=== PATIENT | female | born 1980 | race Caucasian/White ===

== ENCOUNTER → 2020-01-15 12:16 | Outpatient (BNVA) | payer MEDICARE, MEDICAID, SELFPAY | PROVIDERS: Family Provider Family Medicine; PCP Family Medicine; Visit Provider Psychiatry & Neurology Psychiatry | DX: F33.2 Major depressive disorder, recurrent severe without psychotic features (principal); F43.12 Post-traumatic stress disorder, chronic | CPT/HCPCS: 99213 ==

== ENCOUNTER → 2020-02-19 15:48 | Outpatient (BNVA) | payer MEDICARE, MEDICAID, SELFPAY | PROVIDERS: Family Provider Family Medicine; PCP Family Medicine; Visit Provider Social Worker | DX: F43.12 Post-traumatic stress disorder, chronic (principal); F33.2 Major depressive disorder, recurrent severe without psychotic features | CPT/HCPCS: 90834 ==

== ENCOUNTER → 2020-04-05 07:44 | Outpatient (BNVA) | payer MEDICARE, MEDICAID, SELFPAY | PROVIDERS: Family Provider Family Medicine; PCP Family Medicine; Visit Provider Psychiatry & Neurology Psychiatry | DX: F43.12 Post-traumatic stress disorder, chronic (principal); F33.2 Major depressive disorder, recurrent severe without psychotic features | CPT/HCPCS: 99214 ==

== ENCOUNTER 2020-05-25 09:36 | Emergency (ER) | payer MEDICARE, MEDICAID, SELFPAY ==
[2020-05-25] VITALS (8 sets, daily range): BP systolic 130–163; BP diastolic 87–128; PULSE 80–153; RESP 12–19; TEMP 36.8; O2SAT 94–99; BMI 59.7
--- NOTE | 2020-05-25 10:01 | CTR_ITS ---
PROCEDURE INFORMATION: Exam: CT Abdomen And Pelvis With Contrast Exam date and time: 05/25/2020 10:58 AM Age: 39 years old Clinical indication: Abdominal pain; Localized; Left upper quadrant (luq); Prior surgery; Surgery date: 6+ months; Surgery type: Gb, exlap; Patient HX: C/O luq pain w n/v/d; Additional info: Abd pain TECHNIQUE: Imaging protocol: Computed tomography of the abdomen and pelvis with intravenous contrast. Radiation optimization: All CT scans at this facility use at least one of these dose optimization techniques: automated exposure control; mA and/or kV adjustment per patient size (includes targeted exams where dose is matched to clinical indication); or iterative reconstruction. Contrast material: OMNI 300; Contrast volume: 95 ml; Contrast route: INTRAVENOUS (IV); COMPARISON: CT abdomen pelvis w con* [id number] 05/30/2018 9:31 PM RADIATION DOSE METRICS: Total DLP (mGy-cm): 1974.32 FINDINGS: Liver: Normal. No mass. Gallbladder and bile ducts: Stable cholecystectomy. Pancreas: Normal. No ductal dilation. Spleen: Normal. No splenomegaly. Adrenals: Normal. No mass. 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 Stomach and bowel: Unremarkable. No obstruction. No mucosal thickening. Appendix: Normal appendix. Intraperitoneal space: Unremarkable. No free air. No significant fluid collection. Vasculature: Unremarkable. No abdominal aortic aneurysm. Lymph nodes: Unremarkable. No enlarged lymph nodes. Bladder: Unremarkable as visualized. Reproductive: Unremarkable as visualized. Bones/joints: Mild to moderate multilevel spine degenerative changes including degenerative disc disease, spondylosis and facet degenerative changes. Mild dextroscoliosis. Soft tissues: Probable stable morbid obesity. CT/CT abdomen pelvis w con* [id number] IMPRESSION: No acute findings. Radiation Dose CTDIVOL = (mGy): DLP = 1974.32 (mGy-cm)
--- NOTE | 2020-05-25 10:02 | ED_ITS ---
HPI - Abdominal Pain General: Chief Complaint: Abdominal Pain Stated Complaint: FALL THIS AM Time Seen by Provider: 05/25/20 09:44 History of Present Illness: HPI narrative: 39-year-old female comes in complaining of nausea vomiting and diarrhea for the last week. She states this morning she got very dizzy after urinating lightheaded and actually fell has some right-sided pain although initially her pain seemed to begin on the left side prior to that the right-sided discomfort was a result of the fall. She denies any dysuria urgency or frequency no GI blood loss no hematochezia melena hematemesis or coffee-ground emesis she not had a fever at all at home. She is taken Dexilant ondansetron and Reglan at home for the nausea none of which is seem to have helped. She relates the onset of this to shortly after she had a radiofrequency ablation in [place]. She has not followed up through the office who did the radiofrequency ablation as she has not been able to contact them today on the weekend. She has not had any rash she is not had any open or draining areas in her back. She has had a little bit of a nonproductive cough she has no history of any chronic respiratory problems. She is still having some dry heaves while she is here in the emergency room which is not actually brought anything up. MD elicited complaint: abdominal pain Pertinent past history: other (Patient relates onset after being in [place] for radiofrequency ablation on her back, she also has a dry nonproductive cough.) Onset (ago): week(s) (1) Pain Consistency: intermittent Location: LUQ Severity: moderate Quality: cramping Exacerbating factors: eating and vomiting Relieving factors: nothing Context: recent surgery/procedure (Radiofrequency ablation ) Associated Symptoms: Reports anorexia, bloating, change in bowel habits, change in stool character, chills, GI cramping, diarrhea, dyspepsia, nausea and poor appetite; Denies coffee ground emesis, constipation, dysuria, fever(s), heartburn, hematochezia, hematuria, hematemesis, fecal incontinence, loose stools, melena, syncope and vomiting Treatments prior to arrival: other (Dexilant Zofran and Reglan) Related Data: Date of Last Menstrual Period: 02/21/20 Review of Systems Const: Reports: chills; Denies: fever(s) ENMT: Denies: throat pain, ear or mastoid pain, nasal discharge or nasal congestion Card: Denies: syncope Resp: Denies: dyspnea, productive cough or non-productive cough GI: Reports: nausea, diarrhea, bloating, GI cramping, change in bowel habits and change in stool character; Denies: vomiting, hematemesis, coffee ground emesis, heartburn, constipation, fecal incontinence, hematochezia or melena : Denies: dysuria or hematuria Skin/Breast: Denies: rash or pruritus PFSH ED PFSH: Medical History (Updated 05/25/20 @ 13:22 by Jakob Wen DO) Diabetes Hypertension Surgical History (Updated 05/25/20 @ 10:06 by Jakob Wen DO) History of cholecystectomy History of knee surgery History of tonsillectomy Social History Smoking and tobacco status: never smoked Female Reproductive History: Date of last menstrual period: 02/21/20 Physical Exam Const: COMMON NORMALS: no acute distress GENERAL APPEARANCE: cooperative and comfortable ORIENTATION/CONSCIOUSNESS: Yes awake, Yes oriented to person, Yes oriented to place and Yes oriented to time HENMT: COMMON NORMALS: normocephalic, atraumatic, hearing grossly normal bilaterally, external ears normal, EAC's normal, TM's normal bilaterally, Normal nasal mucous membranes and turbinates present, moist oral mucous membranes and oropharynx normal HEAD & SCALP: normocephalic and atraumatic NOSE: Normal nasal mucous membranes and turbinates present EXTERNAL EAR: Yes external ears normal EXTERNAL AUDITORY CANAL: EAC's normal TYMPANIC MEMBRANE: TM's normal bilaterally Eye: COMMON NORMALS: Equal, round and reactive pupils present, EOMs intact bilaterally, conjunctivae normal and no scleral icterus CONJUNCTIVA: Yes conjunctivae normal PUPIL: Yes Equal, round and reactive pupils present Neck/C-Spine: COMMON NORMALS: full ROM, no lymphadenopathy, supple and no JVD Lymph: LYMPHATIC: no lymphadenopathy noted and no lymphedema noted Resp: COMMON NORMALS: normal respiratory effort, No retractions, No use of accessory muscles and clear to auscultation bilaterally AUSCULTATION: clear to auscultation bilaterally Cardio: COMMON NORMALS: no JVD, regular rate, regular rhythm and No murmurs present (Cardio) RATE: regular rate RHYTHM: regular rhythm GI: COMMON NORMALS: Soft to palpation and No hepatosplenomegaly present INSPECTION: No Fluid wave present AUSCULTATION: Yes Absent bowel sounds PALPATION: Yes Soft to palpation, Yes Tenderness to palpation present (GI) (Generalized.), No Guarding due to palpation present (GI) and Yes No hepatosplenomegaly present PERCUSSION: normal to percussion and no fluid wave Extremity: COMMON NORMALS: normal to inspection, capillary refill normal, no clubbing, cyanosis or edema, no calf tenderness and no pedal edema Neuro: SENSORIUM/ORIENTATION: Yes oriented to person, Yes oriented to place and Yes oriented to time Skin: COMMON NORMALS: no rashes or lesions noted GENERAL SKIN EXAM: no rashes or lesions noted Course Vital Signs: Vital signs: Vital Signs Temperature 98.2 F 05/25/20 09:41 Pulse Rate 84 05/25/20 13:29 Respiratory Rate 16 05/25/20 13:29 Blood Pressure 138/106 05/25/20 13:29 Pulse Oximetry 98 05/25/20 13:29 MDM - Abdominal Pain MDM Narrative: Medical decision making narrative: Patient is feeling much better after fluids. Nausea is improved she is not any more episodes of diarrhea. We will go ahead and discharge her home remainder the work-up was unremarkable she does have significantly elevated blood sugar and should follow- up with her PCP for that. Give her Zofran and promethazine hydrocodone for pain if she has any worsening problems return recommend follow-up with her primary care doctor within the next 5 to 7 days on her blood sugar. May be elevated due to the stress of the illness but needs appropriate follow-up. Lab Data: Labs: Lab Results 05/25/20 05/25/20 05/25/20 Range/Units 10:03 10:20 10:20 WBC 10.0 (4.0-10.0) 10^3/ uL RBC 5.73 H (4.1-5.3) 10^6/u L Hgb 14.9 (11.5-15.3) g/dL Hct 49.6 H (37.0-47.0) % MCV 86.6 (81-99) fL MCH 26.0 L (28.0-34.0) pg MCHC 30.0 (30.0-36.0) g/dL RDW 14.6 (12.1-15.1) % Plt Count 279 (130-400) 10^3/c mm MPV 11.8 H (7.4-10.4) fL Neut % (Auto) 59.3 % Lymph % (Auto) 32.0 % [place] % (Auto) 3.9 % Eos % (Auto) 3.8 % Baso % (Auto) 0.6 % Neut # (Auto) 5.90 (1.8-7.7) 10^3/u L Lymph # (Auto) 3.2 (0.8-4.8) 10^3/u L [place] # (Auto) 0.4 (0.2-0.9) 10^3/u L Eos # (Auto) 0.4 (0.0-0.8) 10^3/u L Baso # (Auto) 0.1 (0.0-0.1) 10^3/u L Nucleated RBC % (a uto) 0 % Nucleated RBCs # 0.0 /100WBC Sodium (136-145) mmol/L Potassium (3.5-5.1) mmol/L Chloride (98-107) mmol/L Carbon Dioxide (22-29) mmol/L Anion Gap (5-19) BUN (6-20) mg/dL Creatinine (0.5-0.9) mg/dL GFR Calculation (90-130) mL/min Glucose (65-115) mg/dL Calculated Osmolal ity (285-295) mOsm/k g Lactic Acid 2.1 (0.5-2.2) mmol/L Calcium (8.5-10.5) mg/dL Total Bilirubin (0.15-1.2) mg/dL AST (0-32) U/L ALT (0-33) U/L Alkaline Phosphata se (35-105) IU/L Total Protein (6.6-8.7) g/dL Albumin (3.5-5.2) g/dL Globulin (1.3-4.6) g/dL Lipase (13-60) U/L Urine Color Yellow (Yellow) Urine Appearance Cloudy (CLEAR) Urine pH 5 (5-7) Ur Specific Gravit y 1.025 (1.005-1.030) Urine Protein Trace (Negative) Urine Glucose (UA) 4+ H (Normal) Urine Ketones 1+ H (Negative) Urine Blood Neg (Negative) Urine Nitrate Negative (Negative) Urine Bilirubin Neg (NEGATIVE) Urine Urobilinogen 1 H (Negative) mg/dL Ur Leukocyte María ase Negative (Negative) Urine RBC None (0-2) /hpf Urine WBC None (0-5) /hpf Ur Squamous Epith Cells 0-4 H (0-5) Amorphous Sediment 3+ Urine Bacteria Trace (NONE) Serum Ketones (Negative) 05/25/20 05/25/20 Range/Units 10:20 10:20 WBC (4.0-10.0) 10^3/ uL RBC (4.1-5.3) 10^6/u L Hgb (11.5-15.3) g/dL Hct (37.0-47.0) % MCV (81-99) fL MCH (28.0-34.0) pg MCHC (30.0-36.0) g/dL RDW (12.1-15.1) % Plt Count (130-400) 10^3/c mm MPV (7.4-10.4) fL Neut % (Auto) % Lymph % (Auto) % [place] % (Auto) % Eos % (Auto) % Baso % (Auto) % Neut # (Auto) (1.8-7.7) 10^3/u L Lymph # (Auto) (0.8-4.8) 10^3/u L [place] # (Auto) (0.2-0.9) 10^3/u L Eos # (Auto) (0.0-0.8) 10^3/u L Baso # (Auto) (0.0-0.1) 10^3/u L Nucleated RBC % (a uto) % Nucleated RBCs # /100WBC Sodium 135 L (136-145) mmol/L Potassium 4.1 (3.5-5.1) mmol/L Chloride 100 (98-107) mmol/L Carbon Dioxide 21 L (22-29) mmol/L Anion Gap 18.1 (5-19) BUN 12 (6-20) mg/dL Creatinine 0.8 (0.5-0.9) mg/dL GFR Calculation 80.7 L (90-130) mL/min Glucose 256 H (65-115) mg/dL Calculated Osmolal ity 285 (285-295) mOsm/k g Lactic Acid (0.5-2.2) mmol/L Calcium 9.1 (8.5-10.5) mg/dL Total Bilirubin 0.4 (0.15-1.2) mg/dL AST 31 (0-32) U/L ALT 25 (0-33) U/L Alkaline Phosphata se 103 (35-105) IU/L Total Protein 7.8 (6.6-8.7) g/dL Albumin 4.4 (3.5-5.2) g/dL Globulin 3.4 (1.3-4.6) g/dL Lipase 18 (13-60) U/L Urine Color (Yellow) Urine Appearance (CLEAR) Urine pH (5-7) Ur Specific Gravit y (1.005-1.030) Urine Protein (Negative) Urine Glucose (UA) (Normal) Urine Ketones (Negative) Urine Blood (Negative) Urine Nitrate (Negative) Urine Bilirubin (NEGATIVE) Urine Urobilinogen (Negative) mg/dL Ur Leukocyte María ase (Negative) Urine RBC (0-2) /hpf Urine WBC (0-5) /hpf Ur Squamous Epith Cells (0-5) Amorphous Sediment Urine Bacteria (NONE) Serum Ketones Negative (Negative) Discharge Plan Discharge Patient Disposition: Home, Self-Care Clinical Impression: Abdominal pain, Gastroenteritis Condition: Stable Prescriptions: New Zofran 4 mg tablet 4 mg PO Q6H PRN (Reason: nausea and vomiting) Qty: 20 RF: 0 hydrocodone-acetaminophen 5-325 mg tablet 1 tab PO Q6H PRN (Reason: pain) Qty: 14 RF: 0 promethazine 25 mg suppository 25 mg NM Q6H PRN (Reason: nausea and vomiting) Qty: 12 RF: 1 No Action metoprolol tartrate 50 mg tablet 50 mg PO BID RF: 0 lisinopril 10 mg tablet 10 mg PO DAILY RF: 0 diphenhydramine HCl [Benadryl] 25 mg capsule 25 mg PO DAILY PRN (Reason: Allergy Symptoms) RF: 0 lamotrigine [Lamictal] 150 mg tablet 150 mg PO DAILY Qty: 30 RF: 2 hydroxyzine HCl 50 mg tablet 50 mg PO QID PRN (Reason: anxiety) Qty: 120 RF: 2 fluticasone propionate 50 mcg/actuation spray,suspension 1 spray INTRANASAL BID Qty: 16 RF: 0 buspirone 5 mg tablet 5 mg PO TID PRN (Reason: Anxiety) RF: 0 trazodone 50 mg tablet 100 mg PO BEDTIME RF: 0 temazepam 30 mg Capsule 30 mg PO DAILY RF: 0 tizanidine 2 mg Capsule 2 mg PO BID PRN (Reason: Muscle Pain) RF: 0 Discharge Orders: Discharge Order (Routine); Ordered 05/25/20 Ordered By: Jakob Wen Referrals: Cass Henao MD [Primary Care Provider] - Discharge Diet: Clear Liquid Discharge Activity: Limit activity as instructed Patient Instructions: Abdominal Pain (ED) Activity Restrictions/Additional Instructions: Clear liquid diet for 24 to 48 hours. Pain nausea and vomiting medications also given to you. 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
[2020-05-25 10:24] LABS: Basophils # 0.1 10^3/uL (0.0-0.1); Basophils % 0.6 %; Eosinophils # 0.4 10^3/uL (0.0-0.8); Eosinophils % 3.8 %; Hematocrit 49.6 % (37.0-47.0); Hemoglobin 14.9 g/dL (11.5-15.3); Lymphocytes # 3.2 10^3/uL (0.8-4.8); Mean Corpuscular Volume 86.6 fL (81-99); Mean Platelet Volume 11.8 fL (7.4-10.4); Monocytes # 0.4 10^3/uL (0.2-0.9); Monocytes % 3.9 %; Neutrophils % 59.3 %; Nucleated Red Blood Cells % 0 %; Platelet Count 279 10^3/cmm (130-400); Red Blood Count 5.73 10^6/uL (4.1-5.3); Red Cell Distribution Width 14.6 % (12.1-15.1)
[2020-05-25 10:33] LABS: Ketone (Acetest) Serum Negative (Negative)
[2020-05-25] MEDS: sodium chloride 0.9% 1,000 ML 999 ML IV ×2 (10:33→11:23)
[2020-05-25] MEDS: ondansetron 2 mg/ML SDV 2 mL 4 MG IVP (10:33)
[2020-05-25 10:48] LABS: Alanine Aminotransferase 25 U/L (0-33); Albumin Level 4.4 g/dL (3.5-5.2); Alkaline Phosphatase 103 IU/L (35-105); Anion Gap 18.1 (5-19); Aspartate Amino Transferase 31 U/L (0-32); Blood Urea Nitrogen 12 mg/dL (6-20); Calcium 9.1 mg/dL (8.5-10.5); Carbon Dioxide 21 mmol/L (22-29); Chloride 100 mmol/L (98-107); Globulin 3.4 g/dL (1.3-4.6); Glomerular Filtration Rate 80.7 mL/min (90-130); Glucose 256 mg/dL (65-115); Lipase 18 U/L (13-60); Osmolality Calculated 285 mOsm/kg (285-295); Potassium 4.1 mmol/L (3.5-5.1); Sodium 135 mmol/L (136-145); Total Bilirubin 0.4 mg/dL (0.15-1.2); Total Protein 7.8 g/dL (6.6-8.7)
[2020-05-25 10:50] LABS: Lactic Sepsis W/Reflex 2.1 mmol/L (0.5-2.2)
[2020-05-25] MEDS: iohexol 300 mg/mL 100 mL Btl IV (11:10)
[2020-05-25] MEDS: morphine 4 mg/mL SDV 1 mL IVP (11:19)
--- NOTE | 2020-05-25 11:52 | PC.NURSE ---
Rounded on patient. Patient resting in be. No distress noted. Patient reports that she needs to use the restroom. patient assisted to the restroom at this time. Patient voided and ambulated back to room. Patient back in bed resting and hooked to the monitor. Will continue to monitor patient.
[2020-05-25 11:56] LABS: Add Urine Microscopic? YES; Bilirubin Urine Neg (NEGATIVE); Blood Urine Neg (Negative); Glucose Urine UA 4+ (Normal); Ketones Urine 1+ (Negative); Leukocyte Esterase Urine Negative (Negative); Nitrate Urine Negative (Negative); Protein Urine Trace (Negative); Specific Gravity, Urine 1.025 (1.005-1.030); Squamous Epithelial Cell Urine 0-4 (0-5); Urine Appearance Cloudy (CLEAR); Urine Color Yellow (Yellow); Urobilinogen Urine 1 mg/dL (Negative); pH Urine 5 (5-7)
[2020-05-25 11:57] LABS: Add Urine Culture? No; Amorphous Sediment Urine 3+; Bacteria Urine TRACE
[2020-05-25 12:23] LABS: Reflex Lactate Order REFLEX LACTIC ORDERD
== END 2020-05-25 13:29 | disposition home or self-care (01) ==
PROVIDERS: Emergency Provider Family Medicine; PCP Family Medicine
DX: K52.9 Noninfective gastroenteritis and colitis, unspecified (principal); E11.9 Type 2 diabetes mellitus without complications; I10 Essential (primary) hypertension
CPT/HCPCS: 12345; 74177; 80053; 81001; 81003; 82009; 83605; 83690; 85025; 96361; 96374; 96375; 99284; J2270; J2405; J7030; Q9967

== ENCOUNTER 2020-06-19 07:25 | Emergency (ER) | payer MEDICARE, MEDICAID, SELFPAY ==
[2020-06-19 07:30] VITALS: BMI 58.6
[2020-06-19 07:35] VITALS: BP 161/138; PULSE 98; RESP 18; TEMP 36.8; O2SAT 99
--- NOTE | 2020-06-19 08:40 | W.ED.FEMALGU ---
HPI - Female Genitourinary General: Chief complaint: Urogenital-Female Stated complaint: Blood in urine Time Seen by Provider: 06/19/20 07:33 History of Present Illness: HPI Narrative: 39-year-old morbidly obese female presents complaining of dysuria and urgency. She thought she had a yeast infection has used to 7-day [id number] treatments with no improvement. She has had some hematuria this morning she denies any flank pain although she does have some generalized abdominal pain she has been nauseous she vomited once 2 days ago there was no blood in vomitus no evidence of coffee-ground emesis. She denies any respiratory symptoms or being around anyone who is been tested positive for Kovic recently. MD elicited complaint: dysuria and UTI Pertinent past history: diabetes Onset (ago): day(s) Location of symptoms: external genitalia Severity: severe Female Urogenital Radiation: Non-Radiating Quality of pain: burning Consistency: intermittent Vaginal discharge: none Vaginal bleeding: none Urinary symptoms: Difficulty Urinating, Dysuria, Foul Smelling Urine, Frequency, Hematuria and Urgency Exacerbating factors: urination and palpation Relieving factors: none Associated symptoms: Reports abdominal pain; Deny short of breath, fevers/chills or headache(s) Date of Last Menstrual Period: 02/10/20 Review of Systems Const: Denies: fever(s), chills, body aches, change in appetite, fatigue or malaise ENMT: Denies: throat pain, ear or mastoid pain, nasal discharge or nasal congestion Card: Denies: chest pain, edema, dyspnea on exertion or orthopnea Resp: Denies: dyspnea, productive cough or non-productive cough GI: Reports: abdominal pain : Denies: flank pain, difficulty voiding, dysuria, urinary frequency or urinary urgency Skin/Breast: Denies: rash or pruritus Neuro: Denies: headache(s) PFSH ED PFSH: Medical History Diabetes Hypertension Morbid obesity Sleep apnea Surgical History History of cholecystectomy History of ERCP History of knee surgery History of tonsillectomy Social History Smoking and tobacco status: never smoked Female Reproductive History: Date of last menstrual period: 02/10/20 Physical Exam Const: COMMON NORMALS: no acute distress GENERAL APPEARANCE: cooperative and comfortable ORIENTATION/CONSCIOUSNESS: Yes awake, Yes oriented to person, Yes oriented to place and Yes oriented to time HENMT: COMMON NORMALS: normocephalic, atraumatic and hearing grossly normal bilaterally HEAD & SCALP: normocephalic and atraumatic Eye: COMMON NORMALS: Equal, round and reactive pupils present, EOMs intact bilaterally, conjunctivae normal and no scleral icterus CONJUNCTIVA: Yes conjunctivae normal PUPIL: Yes Equal, round and reactive pupils present Neck/C-Spine: COMMON NORMALS: full ROM, no lymphadenopathy, supple and no JVD Lymph: LYMPHATIC: no lymphadenopathy noted and no lymphedema noted Resp: COMMON NORMALS: normal respiratory effort, No retractions, No use of accessory muscles and clear to auscultation bilaterally AUSCULTATION: clear to auscultation bilaterally Cardio: COMMON NORMALS: no JVD, regular rate, regular rhythm and No murmurs present (Cardio) RATE: regular rate RHYTHM: regular rhythm GI: COMMON NORMALS: Soft to palpation and No hepatosplenomegaly present AUSCULTATION: Yes normoactive bowel sounds PALPATION: Yes Soft to palpation, No Tenderness to palpation present (GI), No Guarding due to palpation present (GI) and Yes No hepatosplenomegaly present : OTHER: Bimanual exam external genitalia noted to have whitish discharge plaquish in appearance consistent with candidal vaginitis. Wet mount done confirmed no gross bloody discharge vaginally. Extremity: COMMON NORMALS: normal to inspection, capillary refill normal, no clubbing, cyanosis or edema, no calf tenderness and no pedal edema Neuro: SENSORIUM/ORIENTATION: Yes oriented to person, Yes oriented to place and Yes oriented to time Skin: COMMON NORMALS: no rashes or lesions noted GENERAL SKIN EXAM: no rashes or lesions noted Course Vital Signs: Vital signs: Vital Signs Temperature 98.3 F 06/19/20 07:35 Pulse Rate 84 06/19/20 11:35 Respiratory Rate 18 06/19/20 07:35 Blood Pressure 148/103 06/19/20 11:35 Pulse Oximetry 96 06/19/20 11:35 MDM - Female MDM Narrative: Medical decision making narrative: Reviewed findings with patient wet mount with positive for Ada yeast infection will treat that however follow-up with her primary care doctor to make sure it resolves. Lab Data: Attestation: I reviewed the patient's lab results. Labs: Lab Results 06/19/20 06/19/20 06/19/20 Range/Units 08:40 08:40 09:04 WBC 8.4 (4.0-10.0) 10^3/ uL RBC 5.34 H (4.1-5.3) 10^6/u L Hgb 13.9 (11.5-15.3) g/dL Hct 45.8 (37.0-47.0) % MCV 85.8 (81-99) fL MCH 26.0 L (28.0-34.0) pg MCHC 30.3 (30.0-36.0) g/dL RDW 15.0 (12.1-15.1) % Plt Count 213 (130-400) 10^3/c mm MPV 11.8 H (7.4-10.4) fL Neut % (Auto) 57.3 % Lymph % (Auto) 33.8 % [place] % (Auto) 4.7 % Eos % (Auto) 3.1 % Baso % (Auto) 0.5 % Neut # (Auto) 4.84 (1.8-7.7) 10^3/u L Lymph # (Auto) 2.9 (0.8-4.8) 10^3/u L [place] # (Auto) 0.4 (0.2-0.9) 10^3/u L Eos # (Auto) 0.3 (0.0-0.8) 10^3/u L Baso # (Auto) 0.0 (0.0-0.1) 10^3/u L Nucleated RBC % (a uto) 0 % Nucleated RBCs # 0.0 /100WBC Sodium 135 L (136-145) mmol/L Potassium 3.9 (3.5-5.1) mmol/L Chloride 103 (98-107) mmol/L Carbon Dioxide 22 (22-29) mmol/L Anion Gap 13.9 (5-19) BUN 10 (6-20) mg/dL Creatinine 0.8 (0.5-0.9) mg/dL GFR Calculation 80.7 L (90-130) mL/min Glucose 284 H (65-115) mg/dL Calculated Osmolal ity 286 (285-295) mOsm/k g Calcium 9.0 (8.5-10.5) mg/dL Total Bilirubin 0.3 (0.15-1.2) mg/dL AST 26 (0-32) U/L ALT 19 (0-33) U/L Alkaline Phosphata se 94 (35-105) IU/L Total Protein 6.8 (6.6-8.7) g/dL Albumin 3.7 (3.5-5.2) g/dL Globulin 3.1 (1.3-4.6) g/dL Urine Color Yellow (Yellow) Urine Appearance Clear (CLEAR) Urine pH 5.0 (5-7) Ur Specific Gravit y 1.025 (1.005-1.030) Urine Protein Neg (Negative) Urine Glucose (UA) 4+ H (Normal) Urine Ketones Negative (Negative) Urine Blood Neg (Negative) Urine Nitrate Negative (Negative) Urine Bilirubin Neg (NEGATIVE) Urine Urobilinogen Norm (Negative) mg/dL Ur Leukocyte Mraía ase Negative (Negative) Discharge Plan Discharge Patient Disposition: Home Clinical Impression: Candidiasis of vagina Condition: Stable Prescriptions: No Action metoprolol tartrate 50 mg tablet 50 mg PO BID RF: 0 lisinopril 10 mg tablet 10 mg PO DAILY RF: 0 diphenhydramine HCl [Benadryl] 25 mg capsule 25 mg PO DAILY PRN (Reason: Allergy Symptoms) RF: 0 lamotrigine [Lamictal] 150 mg tablet 150 mg PO DAILY Qty: 30 RF: 2 hydroxyzine HCl 50 mg tablet 50 mg PO QID PRN (Reason: anxiety) Qty: 120 RF: 2 fluticasone propionate 50 mcg/actuation spray,suspension 1 spray INTRANASAL BID Qty: 16 RF: 0 buspirone 5 mg tablet 5 mg PO TID PRN (Reason: Anxiety) RF: 0 trazodone 50 mg tablet 100 mg PO BEDTIME RF: 0 temazepam 30 mg Capsule 30 mg PO DAILY RF: 0 tizanidine 2 mg Capsule 2 mg PO BID PRN (Reason: Muscle Pain) RF: 0 Zofran 4 mg tablet 4 mg PO Q6H PRN (Reason: nausea and vomiting) Qty: 20 RF: 0 hydrocodone-acetaminophen 5-325 mg tablet 1 tab PO Q6H PRN (Reason: pain) Qty: 14 RF: 0 promethazine 25 mg suppository 25 mg [place] Q6H PRN (Reason: nausea and vomiting) Qty: 12 RF: 1 Discharge Orders: Discharge Order (Routine); Ordered 06/19/20 Ordered By: Jakob Wen Referrals: Cass Henao MD [Primary Care Provider] - Discharge Diet: Usual diet Discharge Activity: Increase activity as tolerated Activity Restrictions/Additional Instructions: Follow up with your primary care doctor to evaluate if not improving. 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
[2020-06-19 08:56] LABS: Basophils % 0.5 %; Eosinophils # 0.3 10^3/uL (0.0-0.8); Eosinophils % 3.1 %; Hematocrit 45.8 % (37.0-47.0); Hemoglobin 13.9 g/dL (11.5-15.3); Lymphocytes # 2.9 10^3/uL (0.8-4.8); Lymphocytes % 33.8 %; Mean Corpuscular HGB Conc 30.3 g/dL (30.0-36.0); Mean Corpuscular Volume 85.8 fL (81-99); Mean Platelet Volume 11.8 fL (7.4-10.4); Monocytes # 0.4 10^3/uL (0.2-0.9); Monocytes % 4.7 %; Neutrophils # 4.84 10^3/uL (1.8-7.7); Neutrophils % 57.3 %; Nucleated Red Blood Cells % 0 %; Platelet Count 213 10^3/cmm (130-400); Red Blood Count 5.34 10^6/uL (4.1-5.3); White Blood Count 8.4 10^3/uL (4.0-10.0)
[2020-06-19 09:10] VITALS: BP 186/113; PULSE 89; O2SAT 96
[2020-06-19 09:19] LABS: Add Urine Microscopic? NO
[2020-06-19 09:24] LABS: Bilirubin Urine Neg (NEGATIVE); Blood Urine Neg (Negative); Glucose Urine UA 4+ (Normal); Ketones Urine Negative (Negative); Leukocyte Esterase Urine Negative (Negative); Nitrate Urine Negative (Negative); Protein Urine Neg (Negative); Specific Gravity, Urine 1.025 (1.005-1.030); Urine Appearance Clear (CLEAR); Urine Color Yellow (Yellow); Urobilinogen Urine Norm (Negative)
[2020-06-19 09:45] LABS: Alanine Aminotransferase 19 U/L (0-33); Albumin Level 3.7 g/dL (3.5-5.2); Alkaline Phosphatase 94 IU/L (35-105); Anion Gap 13.9 (5-19); Aspartate Amino Transferase 26 U/L (0-32); Blood Urea Nitrogen 10 mg/dL (6-20); Carbon Dioxide 22 mmol/L (22-29); Chloride 103 mmol/L (98-107); Globulin 3.1 g/dL (1.3-4.6); Glomerular Filtration Rate 80.7 mL/min (90-130); Glucose 284 mg/dL (65-115); Osmolality Calculated 286 mOsm/kg (285-295); Potassium 3.9 mmol/L (3.5-5.1); Sodium 135 mmol/L (136-145); Total Bilirubin 0.3 mg/dL (0.15-1.2); Total Protein 6.8 g/dL (6.6-8.7)
[2020-06-19 10:25] VITALS: BP 170/107; PULSE 100; O2SAT 94
[2020-06-19 11:35] VITALS: BP 148/103; PULSE 84; O2SAT 96
== END 2020-06-19 11:35 | disposition home or self-care (01) ==
PROVIDERS: Emergency Provider Family Medicine; PCP Family Medicine
DX: B37.3 Candidiasis of vulva and vagina (principal); E11.9 Type 2 diabetes mellitus without complications; I10 Essential (primary) hypertension
CPT/HCPCS: 12345; 80053; 81003; 85025; 87210; 99282

== ENCOUNTER → 2020-06-28 08:32 | Outpatient (BNVA) | payer MEDICARE, MEDICAID, SELFPAY | PROVIDERS: PCP Family Medicine; Visit Provider Psychiatry & Neurology Psychiatry | DX: F43.12 Post-traumatic stress disorder, chronic (principal); F33.2 Major depressive disorder, recurrent severe without psychotic features | CPT/HCPCS: 99213 ==

== ENCOUNTER → 2020-08-09 08:06 | Outpatient (BNVA) | payer MEDICARE, MEDICAID, SELFPAY | PROVIDERS: PCP Family Medicine; Visit Provider Psychiatry & Neurology Psychiatry | DX: F43.12 Post-traumatic stress disorder, chronic (principal); F33.2 Major depressive disorder, recurrent severe without psychotic features | CPT/HCPCS: 99213 ==

== ENCOUNTER → 2020-10-09 07:45 | Outpatient (BNVA) | payer MEDICARE, MEDICAID, SELFPAY | PROVIDERS: PCP Family Medicine; Visit Provider Psychiatry & Neurology Psychiatry | DX: F43.12 Post-traumatic stress disorder, chronic (principal); F33.2 Major depressive disorder, recurrent severe without psychotic features | CPT/HCPCS: 99213 ==

== ENCOUNTER → 2020-11-22 10:31 | Outpatient (BNVA) | payer MEDICARE, MEDICAID, SELFPAY | PROVIDERS: PCP Family Medicine; Visit Provider Psychiatry & Neurology Psychiatry | DX: F43.12 Post-traumatic stress disorder, chronic (principal); F33.2 Major depressive disorder, recurrent severe without psychotic features | CPT/HCPCS: 99214 ==

== ENCOUNTER → 2021-01-08 07:46 | Outpatient (BNVA) | payer MEDICARE, MEDICAID, SELFPAY | PROVIDERS: PCP Family Medicine; Visit Provider Psychiatry & Neurology Psychiatry | DX: F43.12 Post-traumatic stress disorder, chronic (principal); F33.2 Major depressive disorder, recurrent severe without psychotic features | CPT/HCPCS: 99213 ==

== ENCOUNTER 2021-03-06 14:05 | Emergency (ER) | payer MEDICARE, MEDICAID, SELFPAY ==
[2021-03-06 14:45] VITALS: PULSE 88; RESP 18; TEMP 36.5; O2SAT 97; BMI 54.3
--- NOTE | 2021-03-06 15:04 | ED_ITS ---
Documented by User: TANYA Bruner 03/07/21 06:51 HPI - Abdominal Pain General: Chief Complaint: Abdominal Pain Stated Complaint: ABDOMINAL PAIN/ NAUSEA Time Seen by Provider: 03/06/21 15:02 History of Present Illness: HPI narrative: Patient is a 40-year-old female comes to the ED with abdominal pain nausea vomiting diarrhea. Patient has past surgical history of cholecystectomy. Patient says symptoms started last night. She says she has had diarrhea 6 times and vomited twice since onset of symptoms. She also complains of having abdominal pain is located in the right lower quadrant. Patient says she has high blood pressure one occasions but it has not been this high in the past. She denies any symptoms currently. Denies any headache or any neurological symptoms. Associated Symptoms: Reports diarrhea, nausea and vomiting; Denies chills, constipation, dysuria, fever(s), hematochezia and hematuria Related Data: Date of Last Menstrual Period: 02/19/21 Review of Systems Const: Denies: fever(s), chills or fatigue Eyes: Denies: change in vision or eye discomfort ENMT: Denies: throat pain, odynophagia, nasal discharge or nasal congestion Card: Denies: chest pain, palpitations, edema, swelling of feet/ankles, dys pnea on exertion or orthopnea Resp: Denies: dyspnea, productive cough or non-productive cough GI: Reports: abdominal pain, nausea, vomiting and diarrhea; Denies: constipation or hematochezia : Denies: flank pain, dysuria or hematuria Musc: Denies: neck pain, back pain or extremity swelling Skin/Breast: Denies: rash or new lesions Neuro: Denies: headache(s), numbness in extremities or weakness in extremities PFSH ED PFSH: Medical History Diabetes Hypertension Morbid obesity Sleep apnea Surgical History History of cholecystectomy History of ERCP History of knee surgery History of tonsillectomy Social History Smoking and tobacco status: never smoked Female Reproductive History: Date of last menstrual period: 02/19/21 Physical Exam Const: COMMON NORMALS: patient oriented x3 HENMT: COMMON NORMALS: normocephalic HEAD & SCALP: normocephalic MOUTH: Normal oral and palatal mucosa present THROAT: posterior oropharynx normal and uvula midline Neck/C-Spine: COMMON NORMALS: supple GENERAL: Yes normal visual inspection Resp: COMMON NORMALS: normal respiratory effort, No retractions, No use of accessory muscles and clear to auscultation bilaterally AUSCULTATION: clear to auscultation bilaterally Cardio: COMMON NORMALS: regular rate, regular rhythm, S1 normal heart sound present, S2 normal heart sound present, No gallops present (Cardio), No clicks present (Cardio), No murmurs present (Cardio) and Peripheral pulses 2+ throughout RATE: regular rate RHYTHM: regular rhythm HEART SOUNDS: S1 normal heart sound present and S2 normal heart sound present PERIPHERAL PULSES: Peripheral pulses 2+ throughout GI: COMMON NORMALS: Normal to inspection, nondistended, normoactive bowel sounds present, Soft to palpation and no masses INSPECTION: Yes central obesity PALPATION: Yes Soft to palpation and Yes Tenderness to palpation present (GI) Details: RLQ (McBurney's point tenderness) : BLADDER/KIDNEY EXAM: Yes CVA tenderness on the right Back/Pelvis: GENERAL BACK: Yes CVA tenderness Extremity: COMMON NORMALS: normal to inspection Neuro: COMMON NORMALS: patient oriented x3 GAIT: Yes Normal gait present Course Vital Signs: Vital signs: Vital Signs Temperature 97.7 F 03/06/21 14:45 Pulse Rate 93 03/06/21 18:36 Respiratory Rate 18 03/06/21 18:36 Blood Pressure 118/80 03/06/21 18:36 Pulse Oximetry 95 03/06/21 18:36 MDM - Abdominal Pain Lab Data: Attestation: I reviewed the patient's lab results. Labs: Lab Results 03/06/21 03/06/21 03/06/21 Range/Units 15:55 15:55 16:00 WBC 12.3 H (4.0-10.0) 10^3/ uL RBC 6.15 H (4.1-5.3) 10^6/u L Hgb 16.4 H (11.5-15.3) g/dL Hct 51.4 H (37.0-47.0) % MCV 83.6 (81-99) fL MCH 26.7 L (28.0-34.0) pg MCHC 31.9 (30.0-36.0) g/dL RDW 13.7 (12.1-15.1) % Plt Count 310 (130-400) 10^3/c mm MPV 12.0 H (7.4-10.4) fL Neut % (Auto) 55.3 % Lymph % (Auto) 34.5 % [place] % (Auto) 4.9 % Eos % (Auto) 4.1 % Baso % (Auto) 0.7 % Neut # (Auto) 6.79 (1.8-7.7) 10^3/u L Lymph # (Auto) 4.2 (0.8-4.8) 10^3/u L [place] # (Auto) 0.6 (0.2-0.9) 10^3/u L Eos # (Auto) 0.5 (0.0-0.8) 10^3/u L Baso # (Auto) 0.1 (0.0-0.1) 10^3/u L Nucleated RBC % (a uto) 0 % Nucleated RBCs # 0.0 /100WBC Sodium 130 L (136-145) mmol/L Potassium 4.3 (3.5-5.1) mmol/L Chloride 95 L (98-107) mmol/L Carbon Dioxide 22 (22-29) mmol/L Anion Gap 17.3 (5-19) BUN 20 (6-20) mg/dL Creatinine 1.0 H (0.5-0.9) mg/dL GFR Calculation 62.1 L (90-130) mL/min Glucose 200 H (65-115) mg/dL Calculated Osmolal ity 278 L (285-295) mOsm/k g Calcium 9.1 (8.5-10.5) mg/dL Total Bilirubin 0.5 (0.15-1.2) mg/dL AST 21 (0-32) U/L ALT 20 (0-33) U/L Alkaline Phosphata se 126 H (35-105) IU/L Total Protein 7.7 (6.6-8.7) g/dL Albumin 4.3 (3.5-5.2) g/dL Globulin 3.4 (1.3-4.6) g/dL Lipase 19 (13-60) U/L HCG, Qual (Negative) Urine Color Straw (Yellow) Urine Appearance Clear (CLEAR) Urine pH 5 (5-7) Ur Specific Gravit y 1.010 (1.005-1.030) Urine Protein Neg (Negative) Urine Glucose (UA) 2+ (Normal) Urine Ketones Negative (Negative) Urine Blood Neg (Negative) Urine Nitrate Negative (Negative) Urine Bilirubin Neg (Negative) Urine Urobilinogen Norm (Negative) mg/dL Ur Leukocyte María ase Negative (Negative) Urine RBC Rare (0-2) /hpf Urine WBC 0-4 H (0-5) /hpf Ur Squamous Epith Cells 5-10 H (0-5) /hpf Amorphous Sediment Not Reportable Urine Bacteria 1+ H (NONE) /hpf 03/06/21 Range/Units 16:30 WBC (4.0-10.0) 10^3/ uL RBC (4.1-5.3) 10^6/u L Hgb (11.5-15.3) g/dL Hct (37.0-47.0) % MCV (81-99) fL MCH (28.0-34.0) pg MCHC (30.0-36.0) g/dL RDW (12.1-15.1) % Plt Count (130-400) 10^3/c mm MPV (7.4-10.4) fL Neut % (Auto) % Lymph % (Auto) % [place] % (Auto) % Eos % (Auto) % Baso % (Auto) % Neut # (Auto) (1.8-7.7) 10^3/u L Lymph # (Auto) (0.8-4.8) 10^3/u L [place] # (Auto) (0.2-0.9) 10^3/u L Eos # (Auto) (0.0-0.8) 10^3/u L Baso # (Auto) (0.0-0.1) 10^3/u L Nucleated RBC % (a uto) % Nucleated RBCs # /100WBC Sodium (136-145) mmol/L Potassium (3.5-5.1) mmol/L Chloride (98-107) mmol/L Carbon Dioxide (22-29) mmol/L Anion Gap (5-19) BUN (6-20) mg/dL Creatinine (0.5-0.9) mg/dL GFR Calculation (90-130) mL/min Glucose (65-115) mg/dL Calculated Osmolal ity (285-295) mOsm/k g Calcium (8.5-10.5) mg/dL Total Bilirubin (0.15-1.2) mg/dL AST (0-32) U/L ALT (0-33) U/L Alkaline Phosphata se (35-105) IU/L Total Protein (6.6-8.7) g/dL Albumin (3.5-5.2) g/dL Globulin (1.3-4.6) g/dL Lipase (13-60) U/L HCG, Qual Negative (Negative) Urine Color (Yellow) Urine Appearance (CLEAR) Urine pH (5-7) Ur Specific Gravit y (1.005-1.030) Urine Protein (Negative) Urine Glucose (UA) (Normal) Urine Ketones (Negative) Urine Blood (Negative) Urine Nitrate (Negative) Urine Bilirubin (Negative) Urine Urobilinogen (Negative) mg/dL Ur Leukocyte María ase (Negative) Urine RBC (0-2) /hpf Urine WBC (0-5) /hpf Ur Squamous Epith Cells (0-5) /hpf Amorphous Sediment Urine Bacteria (NONE) /hpf Discharge Plan Discharge Patient Disposition: Home Clinical Impression: Abdominal pain Qualifiers: Abdominal location: generalized Qualified Code(s): R10.84 - Generalized abdominal pain Nausea & vomiting Qualifiers: Vomiting type: unspecified Vomiting Intractability: unspecified Qualified Code(s): R11.2 - Nausea with vomiting, unspecified Condition: Stable Prescriptions: New Zofran 4 mg tablet 4 mg PO DAILY PRN (Reason: nausea and vomiting) 4 Days Qty: 7 RF: 0 Pepcid 20 mg tablet 20 mg PO BID Qty: 20 RF: 0 No Action metoprolol tartrate 50 mg tablet 50 mg PO BID RF: 0 lisinopril 10 mg tablet 10 mg PO QAM RF: 0 diphenhydramine HCl [Benadryl] 25 mg capsule 25 mg PO PRN RF: 0 buspirone 10 mg tablet 20 mg PO TID Qty: 180 RF: 2 hydroxyzine HCl 50 mg tablet 50 mg PO QID PRN (Reason: anxiety) Qty: 120 RF: 2 lamotrigine [Lamictal] 150 mg tablet 150 mg PO DAILY Qty: 30 RF: 2 tizanidine 2 mg Capsule 2 mg PO BID PRN (Reason: Muscle Pain) RF: 0 ondansetron 8 mg tablet,disintegrating 8 mg PO Q6H PRN (Reason: Nausea And Vomiting) RF: 0 temazepam 30 mg capsule 30 mg PO BEDTIME PRN (Reason: Sleep) RF: 0 ibuprofen 200 mg Tablet 400 mg PO PRN RF: 0 metformin 500 mg tablet extended release 24 hr 500 mg PO QAM RF: 0 trazodone 50 mg tablet 100 mg PO BEDTIME RF: 0 prazosin 5 mg capsule 5 mg PO BEDTIME RF: 0 Discharge Orders: Discharge ED (Routine); Ordered 03/06/21 Ordered By: Tawanna Polanco Referrals: Cass Henao MD [Primary Care Provider] - Discharge Diet: Advance as tolerated and Clear Liquid Discharge Activity: Limit activity as instructed Patient Instructions: Acute Nausea and Vomiting (ED), Abdominal Pain (ED), Opioid Safety Activity Restrictions/Additional Instructions: Return to the emergency department if you develop vomiting despite use of Zofran Follow-up with your primary care tomorrow if not improved Rest at home tomorrow, drink plenty of fluids to avoid dehydration Clear liquid diet next 24 hours then advance as tolerated; avoid fried greasy fatty foods until improved. Pepcid was prescribed to help with stomach upset. Take 30 minutes prior to each meal until all gone Return the emergency department immediately if you develop blood in your stool or while vomiting. Follow-up with your doctor next week without fail Stand Alone Forms: Work/School Release Sign Out Sign Out Data: Patient Sign Out occurred on 03/06/21 at 17:17. Patient's care was discussed, and care was transferred from to KJ Contreras. Coding Level of Care Code ED Eyeglass Inspector for Chg Fwd Exam Comprehensive Documented by User: KJ Contreras 03/06/21 18:46 HPI - Abdominal Pain General: Chief Complaint: Abdominal Pain Stated Complaint: ABDOMINAL PAIN/ NAUSEA Time Seen by Provider: 03/06/21 15:02 [facility] ED PFSH: Medical History Diabetes Hypertension Morbid obesity Sleep apnea Surgical History History of cholecystectomy History of ERCP History of knee surgery History of tonsillectomy Social History Smoking and tobacco status: never smoked Course Vital Signs: Vital signs: Vital Signs Temperature 97.7 F 03/06/21 14:45 Pulse Rate 93 03/06/21 18:36 Respiratory Rate 18 03/06/21 18:36 Blood Pressure 118/80 03/06/21 18:36 Pulse Oximetry 95 03/06/21 18:36 MDM - Abdominal Pain MDM Narrative: Medical decision making narrative: 40-year-old female patient presents to the emergency department with complaints of nausea vomiting diarrhea with right lower quadrant pain. Serology results did reveal slight elevation of white blood count along with hemoglobin hematocrit suggestive of mild dehydration. She was administered Zofran here in the ED with resolution of nausea, able to tolerate p.o. fluids/ice chips. Abdominal pain improved with use of Tylenol; CT scan of the abdomen pelvis with contrast revealed no acute abnormality but of note was mild enlargement of her liver with mild periportal lymphadenopathy; findings discussed with the patient. She has a follow-up appointment with her primary care scheduled for next week. She was advised need for ED follow-up in the event symptoms do not improved, further testing may be needed. She was requesting to go home as she was feeling better. Lipase was found to be normal. Urinalysis without UTI findings, negative for nitrate/leukoesterase. Liver enzymes were without elevation, bilirubin normal. Lab Data: Labs: Lab Results 03/06/21 03/06/21 03/06/21 Range/Units 15:55 15:55 16:00 WBC 12.3 H (4.0-10.0) 10^3/ uL RBC 6.15 H (4.1-5.3) 10^6/u L Hgb 16.4 H (11.5-15.3) g/dL Hct 51.4 H (37.0-47.0) % MCV 83.6 (81-99) fL MCH 26.7 L (28.0-34.0) pg MCHC 31.9 (30.0-36.0) g/dL RDW 13.7 (12.1-15.1) % Plt Count 310 (130-400) 10^3/c mm MPV 12.0 H (7.4-10.4) fL Neut % (Auto) 55.3 % Lymph % (Auto) 34.5 % [place] % (Auto) 4.9 % Eos % (Auto) 4.1 % Baso % (Auto) 0.7 % Neut # (Auto) 6.79 (1.8-7.7) 10^3/u L Lymph # (Auto) 4.2 (0.8-4.8) 10^3/u L [place] # (Auto) 0.6 (0.2-0.9) 10^3/u L Eos # (Auto) 0.5 (0.0-0.8) 10^3/u L Baso # (Auto) 0.1 (0.0-0.1) 10^3/u L Nucleated RBC % (a uto) 0 % Nucleated RBCs # 0.0 /100WBC Sodium 130 L (136-145) mmol/L Potassium 4.3 (3.5-5.1) mmol/L Chloride 95 L (98-107) mmol/L Carbon Dioxide 22 (22-29) mmol/L Anion Gap 17.3 (5-19) BUN 20 (6-20) mg/dL Creatinine 1.0 H (0.5-0.9) mg/dL GFR Calculation 62.1 L (90-130) mL/min Glucose 200 H (65-115) mg/dL Calculated Osmolal ity 278 L (285-295) mOsm/k g Calcium 9.1 (8.5-10.5) mg/dL Total Bilirubin 0.5 (0.15-1.2) mg/dL AST 21 (0-32) U/L ALT 20 (0-33) U/L Alkaline Phosphata se 126 H (35-105) IU/L Total Protein 7.7 (6.6-8.7) g/dL Albumin 4.3 (3.5-5.2) g/dL Globulin 3.4 (1.3-4.6) g/dL Lipase 19 (13-60) U/L HCG, Qual (Negative) Urine Color Straw (Yellow) Urine Appearance Clear (CLEAR) Urine pH 5 (5-7) Ur Specific Gravit y 1.010 (1.005-1.030) Urine Protein Neg (Negative) Urine Glucose (UA) 2+ (Normal) Urine Ketones Negative (Negative) Urine Blood Neg (Negative) Urine Nitrate Negative (Negative) Urine Bilirubin Neg (Negative) Urine Urobilinogen Norm (Negative) mg/dL Ur Leukocyte María ase Negative (Negative) Urine RBC Rare (0-2) /hpf Urine WBC 0-4 H (0-5) /hpf Ur Squamous Epith Cells 5-10 H (0-5) /hpf Amorphous Sediment Not Reportable Urine Bacteria 1+ H (NONE) /hpf 03/06/21 Range/Units 16:30 WBC (4.0-10.0) 10^3/ uL RBC (4.1-5.3) 10^6/u L Hgb (11.5-15.3) g/dL Hct (37.0-47.0) % MCV (81-99) fL MCH (28.0-34.0) pg MCHC (30.0-36.0) g/dL RDW (12.1-15.1) % Plt Count (130-400) 10^3/c mm MPV (7.4-10.4) fL Neut % (Auto) % Lymph % (Auto) % [place] % (Auto) % Eos % (Auto) % Baso % (Auto) % Neut # (Auto) (1.8-7.7) 10^3/u L Lymph # (Auto) (0.8-4.8) 10^3/u L [place] # (Auto) (0.2-0.9) 10^3/u L Eos # (Auto) (0.0-0.8) 10^3/u L Baso # (Auto) (0.0-0.1) 10^3/u L Nucleated RBC % (a uto) % Nucleated RBCs # /100WBC Sodium (136-145) mmol/L Potassium (3.5-5.1) mmol/L Chloride (98-107) mmol/L Carbon Dioxide (22-29) mmol/L Anion Gap (5-19) BUN (6-20) mg/dL Creatinine (0.5-0.9) mg/dL GFR Calculation (90-130) mL/min Glucose (65-115) mg/dL Calculated Osmolal ity (285-295) mOsm/k g Calcium (8.5-10.5) mg/dL Total Bilirubin (0.15-1.2) mg/dL AST (0-32) U/L ALT (0-33) U/L Alkaline Phosphata se (35-105) IU/L Total Protein (6.6-8.7) g/dL Albumin (3.5-5.2) g/dL Globulin (1.3-4.6) g/dL Lipase (13-60) U/L HCG, Qual Negative (Negative) Urine Color (Yellow) Urine Appearance (CLEAR) Urine pH (5-7) Ur Specific Gravit y (1.005-1.030) Urine Protein (Negative) Urine Glucose (UA) (Normal) Urine Ketones (Negative) Urine Blood (Negative) Urine Nitrate (Negative) Urine Bilirubin (Negative) Urine Urobilinogen (Negative) mg/dL Ur Leukocyte María ase (Negative) Urine RBC (0-2) /hpf Urine WBC (0-5) /hpf Ur Squamous Epith Cells (0-5) /hpf Amorphous Sediment Urine Bacteria (NONE) /hpf Imaging Data ^: CT Abd/Pel: Radiologist's impression: [address] [id number] Scan ReportSigned Patient: Vonda Martini AUnit #: [id number]: [id number]#:[id number]/Sex: 40 / FADM Date: 03/06/21Loc: ERRoom/Bed:Attending Dr: Ordering Provider/Ordering MD: Tobias Chandler Date of Service: 03/06/21 Procedure(s): CT abdomen pelvis w con* [id number] Accession Number(s): [id number] Report Number: [id number] PROCEDURE INFORMATION: Exam: CT Abdomen And Pelvis With Contrast Exam date and time: 03/06/2021 4:28 PM Age: 40 years old Clinical indication: Right lower quadrant abdominal pain/tenderness with nausea, vomiting and diarrhea. Prior cholecystectomy, abscess and ERCP. TECHNIQUE: Imaging protocol: Computed tomography of the abdomen and pelvis with contrast. Radiation optimization: All CT scans at this facility use at least one of these dose optimization techniques: automated exposure control; mA and/or kV adjustment per patient size (includes targeted exams where dose is matched to clinical indication); or iterative reconstruction. Contrast material: OMNI 300; Contrast volume: 95 ml; Contrast route: INTRAVENOUS (IV); COMPARISON: CT abdomen pelvis w con* [id number] 05/25/2020 11:02 AM RADIATION DOSE METRICS: Total DLP (mGy-cm): 1839.55 FINDINGS: Lungs: There is mild bronchiectasis in the right middle lobe; unchanged. There is subsegmental atelectasis in the right lower lobe. No pericardial effusion. No hiatal hernia Diaphragm: There is elevation of the right hemidiaphragm. Liver: The liver is enlarged measuring 19.4 cm. Gallbladder and bile ducts: The gallbladder has been removed. Pancreas: The pancreas is unremarkable. Spleen: The spleen is unremarkable. Adrenal glands: The adrenal glands are unremarkable. Kidneys and ureters: The kidneys are unremarkable. Stomach and bowel: The stomach and small bowel are unremarkable. The colon is unremarkable. Appendix: The appendix is unremarkable. Intraperitoneal space: No free intraperitoneal air. Vasculature: No abdominal aortic aneurysm. Lymph nodes: A periportal lymph node measures 1.0 x 1.9 cm. Urinary bladder: The bladder is largely decompressed. Reproductive: The uterus and adnexa are grossly unremarkable for age. Bones/joints: No acute fracture is identified. Soft tissues: Small fat containing umbilical hernia. CT/CT abdomen pelvis w con* [id number] IMPRESSION: 1. No evidence of acute appendicitis. 2. No acute abnormality is identified. 3. Hepatomegaly with mild periportal lymphadenopathy. Radiation Dose CTDIVOL = (mGy): DLP = 1839.55 (mGy-cm) Dictated By:Faith Cooperigned By:Faith Cooperigned Date/Time:03/06/214DD/ 11 Discharge Plan Discharge Patient Disposition: Home Clinical Impression: Abdominal pain Qualifiers: Abdominal location: generalized Qualified Code(s): R10.84 - Generalized abdominal pain Nausea & vomiting Qualifiers: Vomiting type: unspecified Vomiting Intractability: unspecified Qualified Code(s): R11.2 - Nausea with vomiting, unspecified Condition: Stable Prescriptions: New Zofran 4 mg tablet 4 mg PO DAILY PRN (Reason: nausea and vomiting) 4 Days Qty: 7 RF: 0 Pepcid 20 mg tablet 20 mg PO BID Qty: 20 RF: 0 No Action metoprolol tartrate 50 mg tablet 50 mg PO BID RF: 0 lisinopril 10 mg tablet 10 mg PO QAM RF: 0 diphenhydramine HCl [Benadryl] 25 mg capsule 25 mg PO PRN RF: 0 buspirone 10 mg tablet 20 mg PO TID Qty: 180 RF: 2 hydroxyzine HCl 50 mg tablet 50 mg PO QID PRN (Reason: anxiety) Qty: 120 RF: 2 lamotrigine [Lamictal] 150 mg tablet 150 mg PO DAILY Qty: 30 RF: 2 tizanidine 2 mg Capsule 2 mg PO BID PRN (Reason: Muscle Pain) RF: 0 ondansetron 8 mg tablet,disintegrating 8 mg PO Q6H PRN (Reason: Nausea And Vomiting) RF: 0 temazepam 30 mg capsule 30 mg PO BEDTIME PRN (Reason: Sleep) RF: 0 ibuprofen 200 mg Tablet 400 mg PO PRN RF: 0 metformin 500 mg tablet extended release 24 hr 500 mg PO QAM RF: 0 trazodone 50 mg tablet 100 mg PO BEDTIME RF: 0 prazosin 5 mg capsule 5 mg PO BEDTIME RF: 0 Discharge Orders: Discharge ED (Routine); Ordered 03/06/21 Ordered By: Tawanna Polanco Referrals: Cass Henao MD [Primary Care Provider] - Discharge Diet: Advance as tolerated and Clear Liquid Discharge Activity: Limit activity as instructed Patient Instructions: Acute Nausea and Vomiting (ED), Abdominal Pain (ED), Opioid Safety Activity Restrictions/Additional Instructions: Return to the emergency department if you develop vomiting despite use of Zofran Follow-up with your primary care tomorrow if not improved Rest at home tomorrow, drink plenty of fluids to avoid dehydration Clear liquid diet next 24 hours then advance as tolerated; avoid fried greasy fatty foods until improved. Pepcid was prescribed to help with stomach upset. Take 30 minutes prior to each meal until all gone Return the emergency department immediately if you develop blood in your stool or while vomiting. Follow-up with your doctor next week without fail Stand Alone Forms: Work/School Release Sign Out Sign Out Data: Patient Sign Out occurred on 03/06/21 at 17:17. Patient's care was discussed, and care was transferred from to KJ Contreras. Coding Level of Care Code ED Eyeglass Inspector for Ange Fwd Exam Comprehensive
--- NOTE | 2021-03-06 15:04 | CTR_ITS ---
PROCEDURE INFORMATION: Exam: CT Head Without Contrast Exam date and time: 03/06/2021 4:28 PM Age: 40 years old Clinical indication: Other: Hypertensive urgency TECHNIQUE: Imaging protocol: Computed tomography of the head without contrast. Radiation optimization: All CT scans at this facility use at least one of these dose optimization techniques: automated exposure control; mA and/or kV adjustment per patient size (includes targeted exams where dose is matched to clinical indication); or iterative reconstruction. COMPARISON: CT head wo con* [id number] 03/17/2019 7:19 PM RADIATION DOSE METRICS: Total DLP (mGy-cm): 794.21 FINDINGS: Brain: Normal. No hemorrhage. Unremarkable white matter. No mass effect. Cerebral ventricles: No ventriculomegaly. Bones/joints: Unremarkable. No acute fracture. Paranasal sinuses: Visualized sinuses are unremarkable. No fluid levels. Mastoid air cells: Visualized mastoid air cells are well aerated. Soft tissues: Unremarkable. CT/CT head wo con* [id number] IMPRESSION: No acute intracranial abnormality. Radiation Dose CTDIVOL = (mGy): DLP = 794.21 (mGy-cm)
--- NOTE | 2021-03-06 15:19 | CTR_ITS ---
PROCEDURE INFORMATION: Exam: CT Abdomen And Pelvis With Contrast Exam date and time: 03/06/2021 4:28 PM Age: 40 years old Clinical indication: Right lower quadrant abdominal pain/tenderness with nausea, vomiting and diarrhea. Prior cholecystectomy, abscess and ERCP. TECHNIQUE: Imaging protocol: Computed tomography of the abdomen and pelvis with contrast. Radiation optimization: All CT scans at this facility use at least one of these dose optimization techniques: automated exposure control; mA and/or kV adjustment per patient size (includes targeted exams where dose is matched to clinical indication); or iterative reconstruction. Contrast material: OMNI 300; Contrast volume: 95 ml; Contrast route: INTRAVENOUS (IV); COMPARISON: CT abdomen pelvis w con* [id number] 05/25/2020 11:02 AM RADIATION DOSE METRICS: Total DLP (mGy-cm): 1839.55 FINDINGS: Lungs: There is mild bronchiectasis in the right middle lobe; unchanged. There is subsegmental atelectasis in the right lower lobe. No pericardial effusion. No hiatal hernia Diaphragm: There is elevation of the right hemidiaphragm. Liver: The liver is enlarged measuring 19.4 cm. Gallbladder and bile ducts: The gallbladder has been removed. Pancreas: The pancreas is unremarkable. Spleen: The spleen is unremarkable. Adrenal glands: The adrenal glands are unremarkable. Kidneys and ureters: The kidneys are unremarkable. Stomach and bowel: The stomach and small bowel are unremarkable. The colon is unremarkable. Appendix: The appendix is unremarkable. Intraperitoneal space: No free intraperitoneal air. Vasculature: No abdominal aortic aneurysm. Lymph nodes: A periportal lymph node measures 1.0 x 1.9 cm. Urinary bladder: The bladder is largely decompressed. Reproductive: The uterus and adnexa are grossly unremarkable for age. Bones/joints: No acute fracture is identified. Soft tissues: Small fat containing umbilical hernia. CT/CT abdomen pelvis w con* [id number] IMPRESSION: 1. No evidence of acute appendicitis. 2. No acute abnormality is identified. 3. Hepatomegaly with mild periportal lymphadenopathy. Radiation Dose CTDIVOL = (mGy): DLP = 1839.55 (mGy-cm)
[2021-03-06 15:30] VITALS: BP 139/101; PULSE 83; O2SAT 95
[2021-03-06] MEDS: sodium chloride 0.9% 500 ML 999 ML IV ×2 (15:42→17:28)
[2021-03-06] MEDS: ondansetron 2 mg/ML SDV 2 mL 4 MG IVP (15:42)
[2021-03-06 15:43] VITALS: RESP 20
[2021-03-06] MEDS: morphine 4 mg/mL SDV 1 mL IVP (15:43)
[2021-03-06 16:10] LABS: Basophils # 0.1 10^3/uL (0.0-0.1); Basophils % 0.7 %; Eosinophils # 0.5 10^3/uL (0.0-0.8); Eosinophils % 4.1 %; Hematocrit 51.4 % (37.0-47.0); Hemoglobin 16.4 g/dL (11.5-15.3); Lymphocytes # 4.2 10^3/uL (0.8-4.8); Lymphocytes % 34.5 %; Mean Corpuscular HGB Conc 31.9 g/dL (30.0-36.0); Mean Corpuscular Hemoglobin 26.7 pg (28.0-34.0); Mean Corpuscular Volume 83.6 fL (81-99); Monocytes # 0.6 10^3/uL (0.2-0.9); Monocytes % 4.9 %; Neutrophils # 6.79 10^3/uL (1.8-7.7); Neutrophils % 55.3 %; Nucleated Red Blood Cells % 0 %; Platelet Count 310 10^3/cmm (130-400); Red Blood Count 6.15 10^6/uL (4.1-5.3); Red Cell Distribution Width 13.7 % (12.1-15.1); White Blood Count 12.3 10^3/uL (4.0-10.0)
[2021-03-06 16:20] LABS: Bilirubin Urine Neg (Negative); Blood Urine Neg (Negative); Glucose Urine UA 2+ (Normal); Ketones Urine Negative (Negative); Leukocyte Esterase Urine Negative (Negative); Nitrate Urine Negative (Negative); Protein Urine Neg (Negative); Urine Appearance Clear (CLEAR); Urine Color Straw (Yellow); Urobilinogen Urine Norm (Negative); pH Urine 5 (5-7)
[2021-03-06 16:26] LABS: Alanine Aminotransferase 20 U/L (0-33); Albumin Level 4.3 g/dL (3.5-5.2); Alkaline Phosphatase 126 IU/L (35-105); Anion Gap 17.3 (5-19); Aspartate Amino Transferase 21 U/L (0-32); Blood Urea Nitrogen 20 mg/dL (6-20); Calcium 9.1 mg/dL (8.5-10.5); Carbon Dioxide 22 mmol/L (22-29); Chloride 95 mmol/L (98-107); Globulin 3.4 g/dL (1.3-4.6); Glomerular Filtration Rate 62.1 mL/min (90-130); Glucose 200 mg/dL (65-115); Lipase 19 U/L (13-60); Osmolality Calculated 278 mOsm/kg (285-295); Potassium 4.3 mmol/L (3.5-5.1); Sodium 130 mmol/L (136-145); Total Bilirubin 0.5 mg/dL (0.15-1.2); Total Protein 7.7 g/dL (6.6-8.7)
[2021-03-06] MEDS: iohexol 300 mg/mL 100 mL Btl IV (16:52)
[2021-03-06 16:55] LABS: Bacteria Urine 1+ /hpf; RBC Urine RARE /hpf (0-2); WBC Urine 0-4 /hpf (0-5)
[2021-03-06 17:24] LABS: HCG, Serum Qual Negative (Negative)
[2021-03-06] MEDS: acetaminophen 500 mg Tablet 1000 MG PO (18:04)
[2021-03-06 18:06] VITALS: BP 118/80; PULSE 95; O2SAT 95
[2021-03-06 18:36] VITALS: BP 118/80; PULSE 93; RESP 18; O2SAT 95
== END 2021-03-06 18:36 | disposition home or self-care (01) ==
PROVIDERS: Physician Assistant; Emergency Provider Nurse Practitioner Family; PCP Family Medicine
DX: R10.84 Generalized abdominal pain (principal); R11.2 Nausea with vomiting, unspecified; E11.9 Type 2 diabetes mellitus without complications; I10 Essential (primary) hypertension; Z79.84 Long term (current) use of oral hypoglycemic drugs
CPT/HCPCS: 36415; 70450; 74177; 80053; 81001; 83690; 84703; 85025; 96374; 96375; 99284; J2270; J2405; J7040; Q9967

== ENCOUNTER → 2021-04-21 11:20 | Outpatient (BNVA) | payer MEDICARE, MEDICAID, SELFPAY | PROVIDERS: PCP Family Medicine; Visit Provider Psychiatry & Neurology Psychiatry | DX: F43.12 Post-traumatic stress disorder, chronic (principal); F33.2 Major depressive disorder, recurrent severe without psychotic features | CPT/HCPCS: 99213 ==

== ENCOUNTER → 2021-07-15 09:58 | Outpatient (BNVA) | payer MEDICARE, MEDICAID, SELFPAY | PROVIDERS: PCP Family Medicine; Visit Provider Psychiatry & Neurology Psychiatry | DX: F43.12 Post-traumatic stress disorder, chronic (principal); F33.2 Major depressive disorder, recurrent severe without psychotic features | CPT/HCPCS: 99213 ==

== ENCOUNTER → 2021-08-14 08:22 | Outpatient (BNVA) | payer MEDICARE, MEDICAID, SELFPAY | PROVIDERS: PCP Family Medicine; Visit Provider Psychiatry & Neurology Psychiatry | DX: F43.12 Post-traumatic stress disorder, chronic (principal); F33.2 Major depressive disorder, recurrent severe without psychotic features; F51.3 Sleepwalking [somnambulism] | CPT/HCPCS: 99214 ==

== ENCOUNTER → 2022-01-07 13:12 | Outpatient (BNVA) | payer MEDICARE, MEDICAID, SELFPAY | PROVIDERS: PCP Family Medicine; Visit Provider Psychiatry & Neurology Psychiatry | DX: F43.12 Post-traumatic stress disorder, chronic (principal); F33.2 Major depressive disorder, recurrent severe without psychotic features | CPT/HCPCS: 99214 ==

== ENCOUNTER → 2022-09-06 15:01 | Outpatient (BNVA) | payer MEDICARE, MEDICAID, SELFPAY | PROVIDERS: PCP Family Medicine; Visit Provider Registered Nurse Neonatal Intensive Care | DX: H93.90 Unspecified disorder of ear, unspecified ear (principal); J02.9 Acute pharyngitis, unspecified; H66.92 Otitis media, unspecified, left ear | CPT/HCPCS: 87070; 87071; 87880 ==

== ENCOUNTER 2023-07-28 20:13 | Emergency (ER) | payer MEDICARE, MEDICAID, SELFPAY ==
[2023-07-28 20:23] VITALS: BP 133/87; PULSE 96; RESP 17; TEMP 36.6; O2SAT 100; BMI 46.1
--- NOTE | 2023-07-28 20:28 | ECG_ITS ---
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 Measurements Intervals [place] Rate: 92 P: 55 MN: 155 QRS: 122 QRSD: 78 T: 98 QT: 353 QTc: 439 Interpretive Statements SINUS RHYTHM POSSIBLE LEFT ATRIAL ENLARGEMENT [-0.1mV P-WAVE IN V1/V2] PATTERN CONSISTENT WITH PULMONARY DISEASE SEPTAL MYOCARDIAL INFARCTION , OF INDETERMINATE AGE [40+ ms Q WAVE IN V1/V2] Compared to ECG 04/18/2019 17:12:44 Myocardial infarct finding now present Sinus tachycardia no longer present Electronically Signed On 07-29-2023 8:01:23 CDT by Caden Robbins M.D. [email or web address]
--- NOTE | 2023-07-28 20:33 | XRR_ITS ---
PROCEDURE INFORMATION: Exam: XR Chest Exam date and time: 07/28/2023 8:39 PM Age: 42 years old Clinical indication: Pain; Chest pressure; Prior surgery; Surgery date: 1-6 months; Surgery type: Open heart June 08 2023; Additional info: Chest pain TECHNIQUE: Imaging protocol: Radiologic exam of the chest. Views: 1 view. COMPARISON: CR XR chest 1V [id number] 04/18/2019 6:09 PM FINDINGS: Lungs: The lungs are clear. The right hemidiaphragm remains mildly elevated. Pleural spaces: Unremarkable. No pleural effusion. No pneumothorax. Heart/Mediastinum: The heart is normal in size. Changes of CABG are noted. Bones/joints: Unremarkable. XR/XR chest 1V portable [id number] IMPRESSION: No acute cardiopulmonary abnormality.
--- NOTE | 2023-07-28 21:15 | CTR_ITS ---
PROCEDURE INFORMATION: Exam: CTA Chest With Contrast Exam date and time: 07/28/2023 9:59 PM Age: 42 years old Clinical indication: Chest wall pain; Prior surgery; Surgery date: 1-6 months; Surgery type: Open heart end of May; Additional info: Cp radiating to right jaw, pain both sides of sternum, recent double bypass, chest pain today new/different TECHNIQUE: Imaging protocol: Computed tomographic angiography of the chest with contrast. Exam focused on the arteries. 3D rendering (Not supervised by radiologist): MIP and/or 3D reconstructed images were created by the technologist. Radiation optimization: All CT scans at this facility use at least one of these dose optimization techniques: automated exposure control; mA and/or kV adjustment per patient size (includes targeted exams where dose is matched to clinical indication); or iterative reconstruction. Contrast material: OMNI 350; Contrast volume: 100 ml; Contrast route: INTRAVENOUS (IV); REPORTING DATA: Count of CT and Cardiac NM exams in prior 12 months: This patient has received 0 known CTs and 0 known cardiac nuclear medicine studies in the 12 months prior to the current study. COMPARISON: CT angio chest PE protcl [id number] 03/17/2019 8:27 PM RADIATION DOSE METRICS: Total DLP (mGy-cm): 559.24 FINDINGS: Pulmonary arteries: No pulmonary embolus is seen. Aorta: The visualized aorta appears normal. No aneurysm or dissection.. Lungs: Right basilar and lingular subsegmental atelectasis is noted. Chronic right middle lobe scarring is significant volume loss are again seen. Pleural spaces: Unremarkable. No pneumothorax. No pleural effusion. Heart: The heart is normal in size. Surgical changes suggestive of a two-vessel bypass are appreciated. However, the left internal mammary artery is not well seen on this study, possibly due to timing of image acquisition after contrast administration. However, the right internal mammary artery is seen and is patent in its normal anatomic position. The saphenous bypass graft appears at least severely narrowed/stenosed shortly after the aortic anastomosis, in the region of several surgical clips (images [id number]). Additionally, a 5 cm focal collection of contrast is present near the graft-coronary artery anastomotic site which may be a pseudoaneurysm (image 219 for reference). Evaluation of the coronary arteries is limited. A small hemopericardium is noted. A small amount of mildly hyperdense fluid is also present in the anterior mediastinum, which is likely blood and related to the recent surgery. Lymph nodes: Unremarkable. No enlarged lymph nodes. Gallbladder and bile ducts: The gallbladder has been removed. No biliary ductal dilatation. Bones/joints: Surgical changes recent surgery is seen in the sternum with associated sternotomy wires. Soft tissues: Mild subcutaneous fat stranding in the midline anterior chest wall related to recent surgery. No abscess is seen. CT/CT angio chest PE protcl [id number] IMPRESSION: 1. No pulmonary embolus or acute pulmonary pathology. 2. Suspected at least severe narrowing/stenosis of the saphenous bypass graft shortly after its aortic anastomosis. The MENJIVAR bypass component is not well seen, possibly due to phase of enhancement at the time of imaging or occlusion since the right internal mammary artery is seen in its normal anatomic position filled with contrast and appears normal. 3. Possible small pseudoaneurysm at the graft-coronary anastomosis.
[2023-07-28 21:16] LABS: Troponin(5th) Baseline 13 ng/L (0-10)
[2023-07-28 21:17] LABS: Basophils % 0.6 %; Eosinophils # 0.3 10^3/uL (0.0-0.8); Eosinophils % 3.5 %; Hematocrit 46.3 % (36-47); Lymphocytes # 2.7 10^3/uL (0.8-4.8); Lymphocytes % 38.3 %; Mean Corpuscular HGB Conc 31.3 g/dL (30-55); Mean Corpuscular Hemoglobin 26.4 pg (27-33); Mean Corpuscular Volume 84.3 fl (85-98); Mean Platelet Volume 10.7 fL (7.4-10.4); Monocytes # 0.3 10^3/uL (0.2-0.9); Monocytes % 4.5 %; Neutrophils # 3.74 10^3/uL (1.8-7.7); Nucleated Red Blood Cells % 0 %; Platelet Count 310 10^3/cmm (157-399); Red Blood Count 5.49 10^6/uL (3.85-5.65); Red Cell Distribution Width 14.6 % (12.1-15.1); White Blood Count 7.07 10^3/uL (3.29-11.43)
--- NOTE | 2023-07-28 21:18 | ED_ITS ---
Documented by User: Heriberto Castellanos MD 07/29/23 06:04 HPI - Chest Pain General: Chief Complaint: Chest Pain Stated Complaint: chest pain Time Seen by Provider: 07/28/23 20:43 History of Present Illness: 42-year-old female with a history of coronary artery disease who had a myocardial infarction in late May. She says she had double bypass on June [address] Chen in [place] at [facility]. She was discharged on June 14. She has a follow-up appointment with him tomorrow. Patient reports that she has been having sharp chest pain on both sides of her sternum radiating up towards her right jaw. No associated shortness of breath, lightheadedness, diaphoresis, nausea, vomiting. She does have a small area of wound dehiscence in the lower one third of her sternotomy scar. Dr. Shepard knows about this and has been watching it. Patient has been keeping it clean and covered. She denies any fever or chills. She does have pain when she presses on either side of her sternum. The pain is sharp in contrast to her dull pressure-like pain that she had with her angina. She has tried Tylenol. She is out of her tramadol. She is instructed not to use ibuprofen Associated symptoms: Deny abdominal pain, dyspnea, fever(s), nausea, syncope or vomiting Review of Systems General: Reports: 10 or more systems reviewed and unremarkable except in HPI and below Const: Denies: fever(s), chills or body aches Eyes: Denies: change in vision ENMT: Denies: throat pain Card: Denies: edema or syncope Resp: Denies: dyspnea or productive cough GI: Denies: abdominal pain, nausea, vomiting or diarrhea : Denies: flank pain, dysuria or urinary frequency Musc: Denies: neck pain, back pain, extremity pain or extremity swelling Skin/Breast: Denies: rash or erythema Neuro: Denies: headache(s), numbness in extremities, weakness in extremities, lack of coordination or difficulty walking PFSH ED PFSH: Medical History Diabetes Hypertension Morbid obesity Psychiatric care Sleep apnea Surgical History History of cholecystectomy History of ERCP History of knee surgery History of tonsillectomy Social History Smoking and tobacco status: never smoked Second hand smoke exposure: Yes Smoking risk assessment/counseling performed?: No Alcohol intake: current Alcohol intake frequency: holidays/special occasions only Alcohol type: hard liquor Desire information about alcohol rehabilitation?: No Counseling given: Yes Other alcohol counseling details: Alcohol & medications don't mix. Substance/Drug Use: former Date of last use: 06/2022 Desire information about substance/drug rehabilitation?: No Counseling given: No Physical Exam Const: COMMON NORMALS: no limitations, alert and well nourished EXAM LIMITATIONS: no altered mental status HENMT: COMMON NORMALS: atraumatic and external ears normal HEAD & SCALP: atraumatic EXTERNAL EAR: Yes external ears normal MOUTH: no muffled voice Eye: COMMON NORMALS: EOMs intact bilaterally, conjunctivae normal and no scleral icterus CONJUNCTIVA: Yes conjunctivae normal Neck/C-Spine: COMMON NORMALS: no JVD GENERAL: Yes normal visual inspection and Yes trachea midline Chest: CHEST: Yes abnormal inspection of the chest (sternotomy wound) OTHER: tender all throughout the anterior chest wall Resp: COMMON NORMALS: normal respiratory effort, No use of accessory muscles and clear to auscultation bilaterally AUSCULTATION: clear to auscultation bilaterally Cardio: COMMON NORMALS: no JVD, regular rate and regular rhythm RATE: regular rate RHYTHM: regular rhythm GI: COMMON NORMALS: Soft to palpation and non-tender PALPATION: Yes Soft to palpation and No Guarding due to palpation present (GI) Extremity: COMMON NORMALS: normal to inspection Neuro: COMMON NORMALS: moves all extremities, no focal motor deficits and no sensory deficits noted SENSORIUM/ORIENTATION: Yes alert SPEECH: speech normal Psych: COMMON NORMALS: mental status grossly normal, Normal thought process present, cooperative, normal affect and speech normal SPEECH: Yes normal speech THOUGHT PROCESS: Normal thought process present Skin: NARRATIVE SKIN EXAM: Small nickel sized dehiscence lower 1/3 of sternotomy scar. Some scant clear transudative discharge and some granulation tissue. No overt signs of infection (abnormal calor, tumor, rubor). Course Vital Signs: Vital signs: Vital Signs Temperature 97.8 F 07/28/23 20:23 Pulse Rate 82 07/29/23 02:24 Respiratory Rate 18 07/29/23 02:24 Blood Pressure 136/89 07/29/23 02:24 Pulse Oximetry 93 07/29/23 02:24 Oxygen Delivery Me thod Room Air 07/29/23 01:30 MDM - Chest Pain Medical Decision Making ddx: chest wall pain, pleurisy, sternotomy wire pain, unstable angina, PE, pericarditis, myocarditis, pneumonia, mediastinitis, other. EKG obtained at 2027. My interpretation, sinus rhythm, rate 92, right axis deviation, QRS 78 ms, incomplete right bundle branch block, delayed R wave progression through the precordium, enlarged P wave suggesting left atrial enlargement, nonspecific T wave abnormalities, no concerning ST segment elevations. Nitroglycerin did nothing for her pain. Morphine did nothing for her pain. It made her itchy. She was given Benadryl. Dilaudid has been ordered for her pain. BNP is normal and troponin is 13. I have a suspicion this is noncardiac pain. I am doing a CTA of the chest to rule out other things on the differential diagnosis. She will also need a delta troponin at 2 hours. If these are unremarkable, I think the patient can be safely discharged and follow-up with her cardiothoracic surgeon tomorrow Patient reevaluated at 10:30 PM. She states that her pain is now gone. She is resting comfortably. Her initial troponin was 13 as noted. Were going to do a delta troponin and wait on the official results of the CTA of the chest. If these are without acute findings, the patient may be discharged to follow-up with Dr. Chen Patient results of the CT scan came back which showed suspected at least severe narrowing stenosis of the saphenous bypass graft shortly after the [address] Shepard was called but he does not take call. The CT surgeon who is on-call for him said since she has an appointment tomorrow and she is pain-free, EKGs and serial troponins are essentially negative she can just keep her appointment with him tomorrow. Patient will be discharged home to follow-up with him tomorrow. [address] Blanco at end of shift pending CTA chest and delta trop. Lab Data 07/28/23 20:46 07/28/23 20:46 Radiology Impressions Chest X-Ray 07/28/23 20:33 IMPRESSION: No acute cardiopulmonary abnormality. Chest CTA 07/28/23 21:15 IMPRESSION: 1. No pulmonary embolus or acute pulmonary pathology. 2. Suspected at least severe narrowing/stenosis of the saphenous bypass graft shortly after its aortic anastomosis. The MENJIVAR bypass component is not well seen, possibly due to phase of enhancement at the time of imaging or occlusion since the right internal mammary artery is seen in its normal anatomic position filled with contrast and appears normal. 3. Possible small pseudoaneurysm at the graft-coronary anastomosis. Laboratory Results WBC 7.07 10^3/uL (3.29-11.43) 07/28/23 20:46 RBC 5.49 10^6/uL (3.85-5.65) 07/28/23 20:46 Hgb 14.50 g/dL (11.27-16.99) 07/28/23 20:46 Hct 46.3 % (36-47) 07/28/23 20:46 MCV 84.3 fl (85-98) L 07/28/23 20:46 MCH 26.4 pg (27-33) L 07/28/23 20:46 MCHC 31.3 g/dL (30-55) 07/28/23 20:46 RDW 14.6 % (12.1-15.1) 07/28/23 20:46 Plt Count 310 10^3/cmm (157-399) 07/28/23 20:46 MPV 10.7 fL (7.4-10.4) H 07/28/23 20:46 Neut % (Auto) 53.0 % 07/28/23 20:46 Lymph % (Auto) 38.3 % 07/28/23 20:46 Heard % (Auto) 4.5 % 07/28/23 20:46 Eos % (Auto) 3.5 % 07/28/23 20:46 Baso % (Auto) 0.6 % 07/28/23 20:46 Neut # (Auto) 3.74 10^3/uL (1.8-7.7) 07/28/23 20:46 Lymph # (Auto) 2.7 10^3/uL (0.8-4.8) 07/28/23 20:46 Heard # (Auto) 0.3 10^3/uL (0.2-0.9) 07/28/23 20:46 Eos # (Auto) 0.3 10^3/uL (0.0-0.8) 07/28/23 20:46 Baso # (Auto) 0.0 10^3/uL (0.0-0.1) 07/28/23 20:46 Nucleated RBC % (auto) 0 % 07/28/23 20:46 Nucleated RBCs # 0.0 /100WBC 07/28/23 20:46 Sodium 139 mmol/L (136-145) 07/28/23 20:46 Potassium 4.5 mmol/L (3.5-5.1) 07/28/23 20:46 Chloride 100 mmol/L (98-107) 07/28/23 20:46 Carbon Dioxide 27 mmol/L (22-29) 07/28/23 20:46 Anion Gap 16.5 (5-19) 07/28/23 20:46 BUN 12 mg/dL (6-20) 07/28/23 20:46 Creatinine 0.9 mg/dL (0.5-0.9) 07/28/23 20:46 GFR Calculation 69.3 mL/min (90-130) L 07/28/23 20:46 Glucose 125 mg/dL (65-115) H 07/28/23 20:46 Calculated Osmolality 289 mOsm/kg (285-295) 07/28/23 20:46 Calcium 9.5 mg/dL (8.5-10.5) 07/28/23 20:46 Magnesium 2.1 mg/dL (1.7-2.3) 07/28/23 20:46 Total Bilirubin 0.3 mg/dL (0.15-1.2) 07/28/23 20:46 AST 17 U/L (0-32) 07/28/23 20:46 ALT 13 U/L (0-33) 07/28/23 20:46 Alkaline Phosphatase 98 U/L (35-105) 07/28/23 20:46 Troponin T Baseline 13 ng/L (0-10) H 07/28/23 20:46 Troponin T 120 Minute 10.69 ng/L (0-10) H 07/28/23 23:25 Delta Troponin T -2.31 ABS# (0-10) L 07/28/23 23:25 NT-Pro-B Natriuret Pep 263 pg/mL (0-125) H 07/28/23 20:46 Total Protein 7.9 g/dL (6.6-8.7) 07/28/23 20:46 Albumin 4.5 g/dL (3.5-5.2) 07/28/23 20:46 Globulin 3.4 g/dL (1.3-4.6) 07/28/23 20:46 Discharge Plan Discharge Patient Disposition: Home Clinical Impression: Chest pain Condition: Stable Prescriptions: Discontinued ibuprofen 200 mg tablet 400 mg PO TID PRN (Reason: fever or pain) No Action metoprolol tartrate 50 mg tablet 50 mg PO BID lisinopril 10 mg tablet 10 mg PO QAM Dexilant 60 mg capsule,biphase delayed releas 60 mg PO DAILY Farxiga 10 mg tablet 10 mg PO DAILY glipizide 10 mg tablet 10 mg PO DAILY trazodone 100 mg tablet 200 mg PO .HS PRN (Reason: insomnia) Qty: 60 2RF hydroxyzine HCl 50 mg tablet 50 mg PO QID PRN (Reason: anxiety) Qty: 120 2RF fluconazole [Diflucan] 150 mg tablet 150 mg PO Q3D Qty: 2 0RF Discharge Orders: Discharge ED (Routine); Ordered 07/29/23 Ordered By: Frantz Blanco Referrals: Cass Henao MD [Primary Care Provider] - 1 week Patient Instructions: Chest Pain (ED), Pain Management Activity Restrictions/Additional Instructions: Follow-up with Dr Chen tomorrow as scheduled. 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 [employer] Documented by User: Frantz Blanco DO 07/29/23 04:14 HPI - Chest Pain General: Chief Complaint: Chest Pain Stated Complaint: chest pain Time Seen by Provider: 07/28/23 20:43 PFSH ED PFSH: Medical History Diabetes Hypertension Morbid obesity Psychiatric care Sleep apnea Surgical History History of cholecystectomy History of ERCP History of knee surgery History of tonsillectomy Social History Smoking and tobacco status: never smoked Second hand smoke exposure: Yes Smoking risk assessment/counseling performed?: No Alcohol intake: current Alcohol intake frequency: holidays/special occasions only Alcohol type: hard liquor Desire information about alcohol rehabilitation?: No Counseling given: Yes Other alcohol counseling details: Alcohol & medications don't mix. Substance/Drug Use: former Date of last use: 06/2022 Desire information about substance/drug rehabilitation?: No Counseling given: No Course Vital Signs: Vital signs: Vital Signs Temperature 97.8 F 07/28/23 20:23 Pulse Rate 82 07/29/23 02:24 Respiratory Rate 18 07/29/23 02:24 Blood Pressure 136/89 07/29/23 02:24 Pulse Oximetry 93 07/29/23 02:24 Oxygen Delivery Me thod Room Air 07/29/23 01:30 MDM - Chest Pain Medical Decision Making ddx: chest wall pain, pleurisy, sternotomy wire pain, unstable angina, PE, pericarditis, myocarditis, pneumonia, mediastinitis, other. EKG obtained at 2027. My interpretation, sinus rhythm, rate 92, right axis deviation, QRS 78 ms, incomplete right bundle branch block, delayed R wave progression through the precordium, enlarged P wave suggesting left atrial enlargement, nonspecific T wave abnormalities, no concerning ST segment elevations. Nitroglycerin did nothing for her pain. Morphine did nothing for her pain. It made her itchy. She was given Benadryl. Dilaudid has been ordered for her pain. BNP is normal and troponin is 13. I have a suspicion this is noncardiac pain. I am doing a CTA of the chest to rule out other things on the differential diagnosis. She will also need a delta troponin at 2 hours. If these are unremarkable, I think the patient can be safely discharged and follow-up with her cardiothoracic surgeon tomorrow Patient reevaluated at 10:30 PM. She states that her pain is now gone. She is resting comfortably. Her initial troponin was 13 as noted. Were going to do a delta troponin and wait on the official results of the CTA of the chest. If these are without acute findings, the patient may be discharged to follow-up with Dr. Chen Patient results of the CT scan came back which showed suspected at least severe narrowing stenosis of the saphenous bypass graft shortly after the [address] Shepard was called but he does not take call. The CT surgeon who is on-call for him said since she has an appointment tomorrow and she is pain-free, EKGs and serial troponins are essentially negative she can just keep her appointment with him tomorrow. Patient will be discharged home to follow-up with him tomorrow. Differential Diagnosis Unlikely acute massive pulmonary embolism, acute respiratory failure, acute myocardial infarction, cardiac arrest or sudden cardiac Medical Records I reviewed the patient's medical records. Lab Data I reviewed the patient's lab results. 07/28/23 20:46 07/28/23 20:46 Radiology Impressions Chest X-Ray 07/28/23 20:33 IMPRESSION: No acute cardiopulmonary abnormality. Chest CTA 07/28/23 21:15 IMPRESSION: 1. No pulmonary embolus or acute pulmonary pathology. 2. Suspected at least severe narrowing/stenosis of the saphenous bypass graft shortly after its aortic anastomosis. The MENJIVAR bypass component is not well seen, possibly due to phase of enhancement at the time of imaging or occlusion since the right internal mammary artery is seen in its normal anatomic position filled with contrast and appears normal. 3. Possible small pseudoaneurysm at the graft-coronary anastomosis. Laboratory Results WBC 7.07 10^3/uL (3.29-11.43) 07/28/23 20:46 RBC 5.49 10^6/uL (3.85-5.65) 07/28/23 20:46 Hgb 14.50 g/dL (11.27-16.99) 07/28/23 20:46 Hct 46.3 % (36-47) 07/28/23 20:46 MCV 84.3 fl (85-98) L 07/28/23 20:46 MCH 26.4 pg (27-33) L 07/28/23 20:46 MCHC 31.3 g/dL (30-55) 07/28/23 20:46 RDW 14.6 % (12.1-15.1) 07/28/23 20:46 Plt Count 310 10^3/cmm (157-399) 07/28/23 20:46 MPV 10.7 fL (7.4-10.4) H 07/28/23 20:46 Neut % (Auto) 53.0 % 07/28/23 20:46 Lymph % (Auto) 38.3 % 07/28/23 20:46 Heard % (Auto) 4.5 % 07/28/23 20:46 Eos % (Auto) 3.5 % 07/28/23 20:46 Baso % (Auto) 0.6 % 07/28/23 20:46 Neut # (Auto) 3.74 10^3/uL (1.8-7.7) 07/28/23 20:46 Lymph # (Auto) 2.7 10^3/uL (0.8-4.8) 07/28/23 20:46 Heard # (Auto) 0.3 10^3/uL (0.2-0.9) 07/28/23 20:46 Eos # (Auto) 0.3 10^3/uL (0.0-0.8) 07/28/23 20:46 Baso # (Auto) 0.0 10^3/uL (0.0-0.1) 07/28/23 20:46 Nucleated RBC % (auto) 0 % 07/28/23 20:46 Nucleated RBCs # 0.0 /100WBC 07/28/23 20:46 Sodium 139 mmol/L (136-145) 07/28/23 20:46 Potassium 4.5 mmol/L (3.5-5.1) 07/28/23 20:46 Chloride 100 mmol/L (98-107) 07/28/23 20:46 Carbon Dioxide 27 mmol/L (22-29) 07/28/23 20:46 Anion Gap 16.5 (5-19) 07/28/23 20:46 BUN 12 mg/dL (6-20) 07/28/23 20:46 Creatinine 0.9 mg/dL (0.5-0.9) 07/28/23 20:46 GFR Calculation 69.3 mL/min (90-130) L 07/28/23 20:46 Glucose 125 mg/dL (65-115) H 07/28/23 20:46 Calculated Osmolality 289 mOsm/kg (285-295) 07/28/23 20:46 Calcium 9.5 mg/dL (8.5-10.5) 07/28/23 20:46 Magnesium 2.1 mg/dL (1.7-2.3) 07/28/23 20:46 Total Bilirubin 0.3 mg/dL (0.15-1.2) 07/28/23 20:46 AST 17 U/L (0-32) 07/28/23 20:46 ALT 13 U/L (0-33) 07/28/23 20:46 Alkaline Phosphatase 98 U/L (35-105) 07/28/23 20:46 Troponin T Baseline 13 ng/L (0-10) H 07/28/23 20:46 Troponin T 120 Minute 10.69 ng/L (0-10) H 07/28/23 23:25 Delta Troponin T -2.31 ABS# (0-10) L 07/28/23 23:25 NT-Pro-B Natriuret Pep 263 pg/mL (0-125) H 07/28/23 20:46 Total Protein 7.9 g/dL (6.6-8.7) 07/28/23 20:46 Albumin 4.5 g/dL (3.5-5.2) 07/28/23 20:46 Globulin 3.4 g/dL (1.3-4.6) 07/28/23 20:46 All radiology interpretation(s) finalized by discharge Discharge Plan Discharge Patient Disposition: Home Clinical Impression: Chest pain Condition: Stable Prescriptions: Discontinued ibuprofen 200 mg tablet 400 mg PO TID PRN (Reason: fever or pain) No Action metoprolol tartrate 50 mg tablet 50 mg PO BID lisinopril 10 mg tablet 10 mg PO QAM Dexilant 60 mg capsule,biphase delayed releas 60 mg PO DAILY Farxiga 10 mg tablet 10 mg PO DAILY glipizide 10 mg tablet 10 mg PO DAILY trazodone 100 mg tablet 200 mg PO .HS PRN (Reason: insomnia) Qty: 60 2RF hydroxyzine HCl 50 mg tablet 50 mg PO QID PRN (Reason: anxiety) Qty: 120 2RF fluconazole [Diflucan] 150 mg tablet 150 mg PO Q3D Qty: 2 0RF Discharge Orders: Discharge ED (Routine); Ordered 07/29/23 Ordered By: Frantz Blanco Referrals: Cass Henao MD [Primary Care Provider] - 1 week Patient Instructions: Chest Pain (ED), Pain Management Activity Restrictions/Additional Instructions: Follow-up with Dr Chen tomorrow as scheduled. 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
[2023-07-28 21:21] VITALS: RESP 16
[2023-07-28] MEDS: morphine 4 mg/mL SDV 1 mL IVP (21:21)
[2023-07-28 21:25] LABS: Alanine Aminotransferase 13 U/L (0-33); Albumin Level 4.5 g/dL (3.5-5.2); Alkaline Phosphatase 98 U/L (35-105); Anion Gap 16.5 (5-19); Aspartate Amino Transferase 17 U/L (0-32); Blood Urea Nitrogen 12 mg/dL (6-20); Calcium 9.5 mg/dL (8.5-10.5); Carbon Dioxide 27 mmol/L (22-29); Chloride 100 mmol/L (98-107); Globulin 3.4 g/dL (1.3-4.6); Glomerular Filtration Rate 69.3 mL/min (90-130); Glucose 125 mg/dL (65-115); Magnesium 2.1 mg/dL (1.7-2.3); NT Pro B Type Natriuretic Pept 263 pg/mL (0-125); Osmolality Calculated 289 mOsm/kg (285-295); Potassium 4.5 mmol/L (3.5-5.1); Sodium 139 mmol/L (136-145); Total Bilirubin 0.3 mg/dL (0.15-1.2); Total Protein 7.9 g/dL (6.6-8.7)
[2023-07-28] MEDS: aspirin 81 mg Chew Tablet PO (21:28)
[2023-07-28] MEDS: nitroglycerin 0.4 mg sublingual Tablet SUBLINGUAL (21:28)
[2023-07-28] MEDS: diphenhydrAMINE 50 mg/mL SDV 1mL 25 MG IVP (21:54)
[2023-07-28] MEDS: iohexol 350 mg/mL 500 mL Btl (per mL) IV (22:08)
[2023-07-28 22:12] VITALS: RESP 22
[2023-07-28] MEDS: HYDROmorphone 1 mg/mL INJ 1 mL IVP ×2 (22:12→23:28)
[2023-07-28 22:33] VITALS: BP 124/83; PULSE 73; O2SAT 95
--- NOTE | 2023-07-28 22:59 | ECG_ITS ---
[facility] Test Date: 2023-07-28 Pat Name: Vonda Martini Department: Room: Gender: Female Medical Associate: : 1980 Requested By: Frantz Blanco Order Number: [id number] Modesta MD: Caden Robbins M.D. Measurements Intervals [place] Rate: 78 P: 72 NH: 161 QRS: 111 QRSD: 88 T: 80 QT: 385 QTc: 441 Interpretive Statements SINUS RHYTHM POSSIBLE RIGHT VENTRICULAR HYPERTROPHY [SOME/ALL OF: PROMINENT R IN V1, LATE TRANSITION, RAD, TOMMY, SSS] NONSPECIFIC ST & T-WAVE ABNORMALITY Compared to ECG 07/28/2023 20:28:45 T-wave abnormality now present Myocardial infarct finding no longer present Electronically Signed On 07-29-2023 8:07:38 CDT by Caden Robbins M.D. [email or web address]
[2023-07-28 23:28] VITALS: RESP 18
[2023-07-28 23:33] VITALS: BP 128/86; PULSE 73; O2SAT 97
[2023-07-28 23:51] LABS: Troponin 5 2HR 10.69 ng/L (0-10)
[2023-07-28 23:52] LABS: Troponin 5 2HR Delta -2.31 ABS# (0-10)
[2023-07-29 00:03] VITALS: BP 104/66; PULSE 76; O2SAT 98
[2023-07-29 01:30] VITALS: BP 133/91; PULSE 81; RESP 15; O2SAT 95
[2023-07-29 01:48] VITALS: RESP 17
[2023-07-29] MEDS: HYDROmorphone 1 mg/mL INJ 1 mL 0.5 MG IVP (01:48)
--- NOTE | 2023-07-29 02:17 | PC.NURSE ---
@ 2148- pt c/o of itching post morphine injection. Stated prior to admin that she was not allergic. Post she stated that her face was itchy and this always happens. not a big deal they usually just give me Benadryl. Dr Castellanos notified and order for benadryl ordered. Also states that her pain was not relieved with Morphine. @ 7513-- c/o pain and requesting pain medication. Verbal order for Dilaudid 1mg ivp from Dr Blanco given. rbvo. @ 0140- Per verbal order dr blanco give 0.5 ivp dilaudid. rbvo and order placed.
[2023-07-29 02:24] VITALS: BP 136/89; PULSE 82; RESP 18; O2SAT 93
== END 2023-07-29 02:27 | disposition home or self-care (01) ==
PROVIDERS: Emergency Medicine; Emergency Provider Emergency Medicine; PCP Family Medicine
DX: R07.9 Chest pain, unspecified (principal); Z79.84 Long term (current) use of oral hypoglycemic drugs; T81.31XA Disruption of external operation (surgical) wound, not elsewhere classified, initial encounter; E11.9 Type 2 diabetes mellitus without complications; I10 Essential (primary) hypertension; Z77.22 Contact with and (suspected) exposure to environmental tobacco smoke (acute) (chronic); Y83.8 Other surgical procedures as the cause of abnormal reaction of the patient, or of later complication, without mention of misadventure at the time of the procedure
CPT/HCPCS: 36415; 71045; 71275; 80053; 83735; 83880; 84484; 85025; 93005; 96374; 96375; 96376; 99285; 99291; J1170; J1200; J2270; Q9967

== ENCOUNTER 2023-09-09 15:36 | Outpatient (RCR) | payer MEDICARE, MEDICAID, SELFPAY | END 2023-10-07 23:59 | disposition home or self-care (01) | LOC: CR 15:36 | PROVIDERS: PCP Family Medicine; Referring Provider Registered Nurse; Visit Provider Family Medicine | DX: Z95.1 Presence of aortocoronary bypass graft (principal) | CPT/HCPCS: 93798 ==